=== PATIENT | male | born 1955 | race Caucasian/White ===

== ENCOUNTER 2016-10-30 18:43 | Inpatient (IN) | payer OTHER ==
[~2016-10-30] VITALS: Ht 167.6 cm; Wt 82.7 kg
--- NOTE | ~2016-10-30 | EKG ---
[place] [address] [facility] [place] [address] ELECTROCARDIOGRAM REPORT Name: MALIKA BENZ Room #: 202-P ADM IN M.R.#: [id number] Admission: 10/30/16 Attend Phys: Aneta Rojo Discharge: Date of : 59 Report #: [id number] THIS REPORT FOR: //name// [facility] ED Test Date: 2016-10-30 Test Time: 19:13:19 Pat Name: MALIKA BENZ Department: Room: 202 Gender: M [employer]: NERIS : 1955 Requested By: Jorge Simpson Order Number: [id number] MD: Bryce Winter Measurements Intervals [place] Rate: 108 P: 111 [place]: 182 QRS: 87 QRSD: 90 T: 5 QT: 320 QTc: 429 Interpretive Statements Sinus tachycardia Multiple premature complexes, vent & supraven Compared to ECG 12/01/2015 15:38:16 Supraventricular complexes are now present Electronically Signed On 11-01-2016 7:39:01 CDT by Bryce Winter [email or web address] <ELECTRONICALLY SIGNED> By: Bryce Winter MD, [facility] 11/01/16 07 12 12 Bryce Winter MD, [facility] /EPI
--- NOTE | ~2016-10-30 | EKG ---
[place] [address] [facility] [place] [address] ELECTROCARDIOGRAM REPORT Name: MALIKA BENZ Room #: 202-P ADM IN M.R.#: [id number] Admission: 10/30/16 Attend Phys: Aneta Rojo Discharge: Date of : 59 Report #: [id number] THIS REPORT FOR: //name// [facility] ED Test Date: 2016-10-30 Test Time: 20:02:59 Pat Name: MALIKA BENZ Department: Room: 202 Gender: M [employer] Fort[employer]: NERIS : 1955 Requested By: Jorge Simpson Order Number: [id number] MD: Bryce Winter Measurements Intervals [place] Rate: 94 P: 87 MN: 148 QRS: 91 QRSD: 89 T: -69 QT: 346 QTc: 433 Interpretive Statements Sinus rhythm Atrial premature complexes Borderline right axis deviation Nonspecific T abnormalities, inferior leads Compared to ECG 12/01/2015 15:38:16 Ventricular premature complex(es) no longer present Electronically Signed On 11-01-2016 7:39:28 CDT by Bryce Winter [email or web address] <ELECTRONICALLY SIGNED> By: Bryce Winter MD, [facility] 11/01/16 0739 01 01 Bryce Winter MD, [facility] /EPI
--- NOTE | ~2016-10-30 | 2DMMODE ---
[facility] [address] [place] [address] 2 D/M-MODE ECHOCARDIOGRAM Name: MALIKA BENZ Room #: 202-P ADM IN M.R.#: [id number] Admission: 10/30/16 Attend Phys: Aneta Lopez Discharge: Date of : 59 Date of Service: 10/31/16 1613 Report #: [id number] THIS REPORT FOR: //name// APPROVED REPORT EXAM: Comprehensive 2D, Doppler, and color-flow Echocardiogram Patient Location: Bedside Blood Pressure: 106/75 mmHg HR: 75 bpm Other Information Study Quality: Adequate Indications COPD Dyspnea Chest Pain 2D Dimensions RVDd: 41.32 mm LVEF(%): 50.66 (>50%) IVSd: 9.53 (7-11mm) LVOT Diam: 24.51 (18-24mm) LVDd: 44.32 mm PWd: 10.03 (7-11mm) Ascending Aorta: 30.30 mm LVDs: 32.96 (25-40mm) IVC: 23.00 mm Aortic Root: 30.00 mm Quiñones's LVEF: 50.66 % Volumes Left Atrial Volume (Systole) Single Plane 4CH: 20.52 mL Single Plane 2CH: 31.10 mL LA ESV Index: 15.00 mL/m2 Aortic Valve AoV Peak Ed.: 1.39 m/s AO Peak Gr.: 7.75 mmHg LV Max P.85 mmHg LV Max: 1.10 m/s Mitral Valve MV PHT: 73.57 ms MV E Max Ed.: 0.47 m/s E/A Ratio: 0.6 MV A Ed.: 0.75 m/s MV Decel. Time: 253.68 ms [facility] [place] [address] 2 D/M-MODE ECHOCARDIOGRAM Name: MALIKA BENZ Room #: 202-P [facility] IN M.R.#: [id number] Admission: 10/30/16 Attend Phys: Aneta Lopez Discharge: Date of : 59 Date of Service: 10/31/16 1613 Report #: [id number] Pulmonary Valve PV Peak Ed.: 1.26 m/s PV Peak Gr.: 6.32 mmHg Tricuspid Valve TR Peak Ed.: 3.38 m/s RAP Estimate: 10.00 mmHg TR Peak Gr.: 45.59 mmHg Left Ventricle The left ventricle is normal size. There is normal LV segmental wall motion. There is normal left ventricular wall thickness. Left ventricular systolic function is normal. The left ventricular ejection fraction is within the normal range. LVEF is 50-55%. Grade I - abnormal relaxation pattern. Right Ventricle Right ventricle is borderline dilated. The right ventricular systolic function is normal. Atria The left atrium size is normal. Right atrium is borderline dilated. Aortic Valve The aortic valve is mildly sclerotic without stenosis or insufficiency. No aortic regurgitation is present. There is no aortic valvular stenosis. Mitral Valve The mitral valve is normal in structure. There is no mitral valve regurgitation noted. Tricuspid Valve The tricuspid valve is normal in structure. There is mild tricuspid regurgitation. The right atrial pressure is estimated at 10 mmHg. There is moderate pulmonary hypertension. The estimated PAP is 55 mmHg. Pulmonic Valve The pulmonary valve is normal in structure. Trace pulmonic regurgitation. Great Vessels The aortic root is normal in size. IVC is dilated and collapses >50% with inspiration. Pericardium [facility] [address] [place] [address] 2 D/M-MODE ECHOCARDIOGRAM Name: MALIKA BENZ Room #: 202-P ADM IN M.R.#: [id number] Admission: 10/30/16 Attend Phys: Aneta Lopez Discharge: Date of : 59 Date of Service: 10/31/16 1613 Report #: [id number] There is no pericardial effusion. <Conclusion> Left ventricular systolic function is normal. The left ventricular ejection fraction is within the normal range. There is normal LV segmental wall motion. LVEF 50-55%. Grade I - abnormal relaxation pattern. The aortic valve is mildly sclerotic without stenosis or insufficiency. The mitral valve is normal in structure. No mitral insufficiency. There is mild tricuspid regurgitation. The right atrial pressure is estimated at 10 mmHg. There is moderate pulmonary hypertension. The estimated PAP is 55 mmHg. There is no pericardial effusion. <ELECTRONICALLY SIGNED> By: Bryce Winter MD, FACC 10/31/161612 12 12 Bryce Winter MD, FACC /INF
--- NOTE | ~2016-10-30 | HC ---
[facility] [place] [address] [place] [address] CONSULTATION Name: MALIKA BENZ Room #: 202-P ADM IN M.R.#: [id number] Admission: 10/30/16 Attend Phys: Aneta Rojo Discharge: Date of : 59 Report #: [id number] THIS REPORT FOR: //name// CC: Kena Roche REASON FOR CONSULTATION: Respiratory failure. IMPRESSION: 1. Acute on chronic hypercapnic respiratory failure with hypoxemia. 2. Community acquired pneumonia. 3. Exacerbation of chronic obstructive pulmonary disease. 4. Elevated troponin. 5. Dyslipidemia. 6. Pulmonary hypertension. 7. History of spontaneous left pneumothorax. 8. Hyponatremia. 9. Hyperglycemia. PLAN: 1. BiPAP at bedtime and we will evaluate. He is a candidate for home BiPAP. 2. Further evaluation of troponin, consider Cardiology consultation, has seen Dr. Winter in the past. 3. Antibiotics for left infiltrate. We will add Mucomyst. Wean steroids as able. DVT prophylaxis as well as reflux prophylaxis. HISTORY OF PRESENT ILLNESS: A 60-year-old male complains of increasing shortness of breath the last week. Cough, wheeze, slept throughout the weekend. Took extra prednisone, however, not improved into the ER, found to be hypercapnic, placed on BiPAP. We were called this morning to see. He denies any definite chest pain, nausea or vomiting. PAST MEDICAL HISTORY: MEDICATIONS: Include trazodone, citalopram, buspirone, pravastatin, Mucinex, albuterol, Ventolin, prednisone, Stiolto and Zithromax Sunday, Sunday and Sunday. PAST SURGICAL HISTORY: Include rotator cuff 2003, tonsillectomy in 1966, appendectomy in 1962 and cataract removal. FAMILY HISTORY: Heart and valvular disease. SOCIAL HISTORY: Positive tobacco 40 years, quit 10/2015. Positive ETOH in past. [facility] [address] [place] [address] CONSULTATION Name: MALIKA BENZ Room #: 202-P [facility] IN M.R.#: [id number] Admission: 10/30/16 Attend Phys: Aneta Rojo Discharge: Date of : 59 Report #: [id number] ALLERGIES: No known. REVIEW OF SYSTEMS: Positive for shortness of breath, wheeze, cough, lethargy. No GERD. No definite chest pain or palpitation. Positive depression, fatigue, wears home oxygen. PHYSICAL EXAMINATION: VITAL SIGNS: Temperature 97.4, pulse 68, respirations 20, BP 106/75. EYES: Negative icterus. NECK: Trachea midline. LUNGS: Wheeze and rhonchi bilateral. HEART: Regular. ABDOMEN: Bowel sounds present. EXTREMITIES: Showed no cyanosis or calf tenderness. LABORATORY DATA: CMP showed BUN 17, creatinine 0.9, sodium 132, glucose 185. Troponin 0.76. White count 7.9, hemoglobin 17.7, platelets 168. Initial ABG 7.278, pCO2 71, pO2 [address] PE protocol showed emphysema, left lower lobe infiltrate. ProBNP 2199. We will follow closely with you. We will check was done as outpatient. <ELECTRONICALLY SIGNED> By: Valeria Gil MD 11/03/16 0702 1315 1425 Valeria Gil MD /nt
[~2016-10-30 18:43] MED LIST: ACAMPROSATE CA333 MG PO; ACETAMINOPHEN325 M1; ADVAIR 500-501 EACH INH; ADVAIR HFA 230M12 GM INH; ADVAIRDISKUS; ALBUTEROL2.5 MG/0.1 INH; ALEVE220 MG; ATIVAN0.5 MG; ATIVAN0.5 MG OR; ATIVAN0.5 MG PO; ATIVAN1 MG PO; AVELOX 400 MG400 MG PO; AZITHROMYCIN 2250 MG PO; B-100 COMPLEX1 EAC1 PO; BUSPIRONE HCL10 MG PO; CAMPRAL 333 MG333 M1 PO; CELEXA 20 MG TA20 M1; CELEXA 20 MG TA20 M1 OR; CELEXA 20 MG TA20 M1 PO; CENTRUM TABLET1 TAB OR; CHANTIX1 MG PO; CLONAZEPAM PO; COMBIVENT IH; COUMADIN PO; CREON DR 12,001 EACH; CREON DR 12,001 EACH PO; CREON PO; DESYREL50 MG; DESYREL50 MG OR; DESYREL50 MG PO; DUONEB 2.5-0.5 M3 ML INH; FISH OIL; FISH OIL 1,0001 EAC5 PO; FISHOIL PO; HYDROCODON-ACE1 EAC7 PO; LEVAQUIN 500 M500 M1 PO; LOVENOX SC; MEDROL2 MG; MUCINEX600 MG PO; MULTIVITAMIN; MULTIVITAMINS PO; NEURONTIN 300300 M1; NEURONTIN 300300 M1 PO; NEURONTIN 300M300 M2 OR; ONE DAILY COMP1 EAC1 PO; PEPCID AC20 M1 PO; PRAVACHOL20 MG PO; PREDNISONE 10 M10 MG PO; PREDNISONE 20 M20 M1 PO; PREDNISONE 5 MG5 M1 PO; PREDNISONE 5 MG5 MG; PROVENTIL HFA6.7 G1 INH; ROBITUSSIN DM118 ML PO; SPIRIVA; SPIRIVA IH; SPIRIVA INH; SPRIVA; STIOLTO RESPIMAT4 GM IH; TRAZODONE PO; VENTOLIN HFA INH8 GM; VIOKASE 8 TABL468 MG OR; VITAMIN B; VITAMIN C; VITAMIN C 250250 MG PO
[2016-10-30 18:46] VITALS: BP 118/85
[2016-10-30 19:25] LABS: HEMATOCRIT 51.5 % (42.0-52.0); HEMOGLOBIN 17.7 gm/dL (14.0-18.0); MCH 31.7 pg (26.0-34.0); MCHC 34.4 g/dL (28.0-37.0); MCV 92.1 fL (80.0-100.0); PLATELET COUNT 168 thou/uL (150-400); RBC 5.59 mil/uL (4.50-6.00); RDW 12.8 % (10.5-14.5); WBC 7.9 thou/uL (4.0-11.0)
[2016-10-30 19:26] LABS: MANUAL DIFF YES
[2016-10-30 19:37] LABS: CREATININE 0.9 mg/dL (0.6-1.3); POTASSIUM 4.4 mmol/L (3.5-5.1)
[2016-10-30 19:46] LABS: ALBUMIN 3.6 g/dL (3.4-5.0); TOTAL BILIRUBIN 0.9 mg/dL (<0.1-1.0)
[2016-10-30 19:48] LABS: TROPONIN-I 0.76 ng/mL (<0.04-0.07)
[2016-10-30 19:56] LABS: ABSOLUTE NEUTROPHILS 6.8 thou/uL (1.4-8.2); TOTAL CELL COUNT 100
[2016-10-30 20:09] LABS: ABG SAMPLE TYPE ARTERIAL; BE(vivo) 2.3 mmol/L (-2 to +3); HCO3 32.3 mmol/L (22.0-26.0); LACTATE 1.78 mmol/L (0.5-2.0); O2(CT) 25.1 mL/dL (15.0-23.0); O2Hb 92.3 % (92.0-98.0); sO2 90.6 % (92.0-98.0); tCO2 34.4 mmol/L (24.0-30.0)
[2016-10-30 20:10] LABS: PCO2 70.6 mmHg (35.0-45.0); STICK SITE R.RADIAL; pH 7.278 (7.360-7.450)
[2016-10-30 22:02] VITALS: BP 104/81
[2016-10-30 22:16] VITALS: BP 100/72
[2016-10-30] MEDS ORDERED: TRAZODONE HCL50 MG PO (22:27)
[2016-10-30] MEDS ORDERED: FOSAMAX 70 MG T70 MG PO (22:31)
[2016-10-31 03:22] VITALS: BP 98/72
[2016-10-31 06:22] LABS: ABG SAMPLE TYPE ARTERIAL; BE(vivo) 1.5 mmol/L (-2 to +3); HCO3 29.6 mmol/L (22.0-26.0); LACTATE 1.72 mmol/L (0.5-2.0); O2(CT) 26.3 mL/dL (15.0-23.0); O2Hb 96.5 % (92.0-98.0); PCO2 58.2 mmHg (35.0-45.0); PO2 95.8 mmHg (80.0-100.0); sO2 96.7 % (92.0-98.0); tCO2 31.4 mmol/L (24.0-30.0)
[2016-10-31 06:23] LABS: Pressure Support 6 cm H20; STICK SITE R.RADIAL; pH 7.324 (7.360-7.450)
[2016-10-31 07:10] VITALS: BP 106/75
[2016-10-31 12:00] VITALS: BP 107/76
[2016-10-31 16:30] VITALS: BP 107/75
[2016-10-31 19:24] VITALS: BP 111/74
[2016-10-31 22:06] LABS: GLYCOHEMOGLOBIN (HGB A1C) 5.4 % (4.8-5.6)
[2016-11-01 04:46] VITALS: BP 94/65
[2016-11-01 08:00] VITALS: BP 97/73
[2016-11-01 11:05] VITALS: BP 97/61
[2016-11-01 11:13] VITALS: BP 97/61
[2016-11-01 17:05] VITALS: BP 112/78
[2016-11-01 19:40] VITALS: BP 105/77
[2016-11-02 04:11] VITALS: BP 104/72
[2016-11-02 07:10] VITALS: BP 116/81
[2016-11-02 11:10] VITALS: BP 111/73
[2016-11-02 15:10] VITALS: BP 137/81
[2016-11-02 19:36] VITALS: BP 116/81
[2016-11-03 04:21] VITALS: BP 135/87
[2016-11-03 07:18] VITALS: BP 119/79
[2016-11-03] MEDS ORDERED: CEFUROXIME250 MG PO (09:26)
[2016-11-03] MEDS ORDERED: NICOTINE TRANSD14 M1 TRANSDERM (09:26)
[2016-11-03] MEDS ORDERED: PREDNISONE 20 M20 M1 PO (09:28)
[2016-11-03 10:12] VITALS: BP 119/79
[2016-11-03 11:10] VITALS: BP 142/87
[2016-11-04 04:06] LABS: INFLUENZA B Negative (Negative); METAPNEUMOVIRUS Negative (Negative)
== END 2016-11-03 12:30 | disposition home or self-care (01) | DRG 871 ==
LOC: ER 18:43 → 2N 21:33 → EROBS 21:33 → 2N 22:03
PROVIDERS: Emergency Medicine; Family Medicine; Internal Medicine Pulmonary Disease; Nurse Practitioner
PROC: 5A09457 Assistance with Respiratory Ventilation, 24-96 Consecutive Hours, Continuous Positive Airway Pressure (ICD-10-PCS; principal; 2016-10-31)
DX: A41.9 Sepsis, unspecified organism (principal); J18.9 Pneumonia, unspecified organism; J96.21 Acute and chronic respiratory failure with hypoxia; J96.22 Acute and chronic respiratory failure with hypercapnia; J44.1 Chronic obstructive pulmonary disease with (acute) exacerbation; J44.0 Chronic obstructive pulmonary disease with (acute) lower respiratory infection; E87.1 Hypo-osmolality and hyponatremia; F32.9 Major depressive disorder, single episode, unspecified; E78.5 Hyperlipidemia, unspecified; I27.2 Other secondary pulmonary hypertension; E11.65 Type 2 diabetes mellitus with hyperglycemia; Z87.891 Personal history of nicotine dependence; Z90.49 Acquired absence of other specified parts of digestive tract; Z82.49 Family history of ischemic heart disease and other diseases of the circulatory system
CPT/HCPCS: 10081

== ENCOUNTER 2016-11-04 07:30 | Emergency (ER) | payer OTHER ==
[~2016-11-04] VITALS: Ht 167.6 cm; Wt 84.4 kg
--- NOTE | ~2016-11-04 | EKG ---
[place] [address] [employer] [address] ELECTROCARDIOGRAM REPORT Name: MALIKA BENZ 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
[~2016-11-04 07:30] MED LIST changes: +CEFUROXIME250 MG PO; +FOSAMAX 70 MG T70 MG PO; +NICOTINE TRANSD14 M1 TRANSDERM; +TRAZODONE HCL50 MG PO
[2016-11-04 07:57] LABS: ABSOLUTE NEUTROPHILS 6.9 thou/uL (1.4-8.2); BASOPHILS 0.5 % (0.0-2.0); EOSINOPHILS 0.8 % (0.0-3.0); HEMATOCRIT 48.7 % (42.0-52.0); HEMOGLOBIN 16.2 gm/dL (14.0-18.0); LYMPHOCYTES 17.8 % (24.0-44.0); MCH 31.3 pg (26.0-34.0); MCHC 33.2 g/dL (28.0-37.0); MCV 94.4 fL (80.0-100.0); PLATELET COUNT 200 thou/uL (150-400); POLYS 72.9 % (36.0-66.0); RBC 5.16 mil/uL (4.50-6.00); RDW 12.6 % (10.5-14.5); WBC 9.4 thou/uL (4.0-11.0)
[2016-11-04 07:58] LABS: CALCIUM 8.6 mg/dL (8.5-10.1); CREATININE 0.8 mg/dL (0.6-1.3); MANUAL DIFF NO; POTASSIUM 3.8 mmol/L (3.5-5.1)
[2016-11-04 08:11] LABS: TROPONIN-I 0.07 ng/mL (<0.04-0.07)
[2016-11-04 10:29] LABS: ABG SAMPLE TYPE ARTERIAL; BE(vivo) 9.3 mmol/L (-2 to +3); HCO3 37.7 mmol/L (22.0-26.0); LACTATE 0.93 mmol/L (0.5-2.0); O2(CT) 22.4 mL/dL (15.0-23.0); O2Hb 94.4 % (92.0-98.0); PCO2 65.6 mmHg (35.0-45.0); pH 7.377 (7.360-7.450); sO2 95.4 % (92.0-98.0); tCO2 39.7 mmol/L (24.0-30.0)
[2016-11-04 10:30] LABS: STICK SITE R.RADIAL
== END 2016-11-04 14:12 | disposition home or self-care (01) ==
LOC: ER 07:30
PROVIDERS: Emergency Medicine
DX: R09.02 Hypoxemia (principal); J44.1 Chronic obstructive pulmonary disease with (acute) exacerbation; Z98.890 Other specified postprocedural states; F32.9 Major depressive disorder, single episode, unspecified; E11.9 Type 2 diabetes mellitus without complications; F17.210 Nicotine dependence, cigarettes, uncomplicated

== ENCOUNTER → 2016-11-13 | Outpatient (CLI) | payer OTHER | LOC: RAD 13:11 | DX: J18.9 Pneumonia, unspecified organism (principal); J44.9 Chronic obstructive pulmonary disease, unspecified; J90 Pleural effusion, not elsewhere classified ==

== ENCOUNTER 2017-07-25 13:35 | Inpatient (IN) | payer OTHER ==
[~2017-07-25] VITALS: Ht 167.6 cm; Wt 92.1 kg
--- NOTE | ~2017-07-25 | HC ---
[facility] [address] [address] CONSULTATION Name: MALIKA BENZ Room #: 360-P ADM IN M.R.#: [id number] Admission: 07/25/17 Attend Phys: Chuck Griffin MD Discharge: Date of : 59 Report #: [id number] THIS REPORT FOR: //name// CC: Chuck Griffin [facility] physician/PCP Juan Roche DATE OF SERVICE: 07/25/2017 PULMONARY CONSULTATION REFERRING PROVIDER: Kena Dalton MD REASON FOR CONSULTATION: Pneumonia and pulmonary embolism. HISTORY OF PRESENT ILLNESS: The patient is a pleasant 61-year-old male with the past medical history significant for very severe COPD. He has chronic hypoxemia and prior history of pulmonary embolism, presented to our office for a routine followup late this morning. Noted some increasing cough with thick yellow sputum production. Did not improve dramatically after last course of antimicrobial therapy 1 month ago. Denies any fevers, chills or sweats, but continues to have thick secretions causing some dyspnea, perhaps some mild left-sided chest pain. There is a prior history of pulmonary embolism. Has noted some mild lower extremity edema, may have been progressively worsening. His dyspnea has been getting more severe, where he cannot even tolerate ambulating short distances and has not been exercising regularly on his treadmill. He has been using his flutter valve and aerosol treatments for airway clearance. ALLERGIES: None known. OUTPATIENT MEDICATIONS: Include ProAir p.r.n., albuterol nebulized treatments p.r.n., azithromycin 500 mg t.i.w., BuSpar 7.5 mg daily, Celexa 20 mg daily, guaifenesin 600 mg twice daily, Pravachol 40 mg daily, prednisone 20 mg daily, Stiolto inhaler and trazodone 50 mg daily. PAST MEDICAL HISTORY: 1. Very severe COPD. FEV1 is 0.72 liters or 25% of predicted. 2. Chronic hypoxemia secondary to above. 3. Depression. 4. Prior history of pulmonary embolism. 5. History of pancreatitis. 6. Hyperlipidemia. 7. Prior history of pneumothorax, 2016. 8. Pulmonary hypertension. [facility] [address] [place] [address] CONSULTATION Name: MALIKA BENZ Room #: 360-P [facility] IN M.R.#: [id number] Admission: 07/25/17 Attend Phys: Chuck Griffin MD Discharge: Date of : 59 Report #: [id number] PAST SURGICAL HISTORY: Includes cataract extraction, bilateral rotator cuff repairs, appendectomy and tonsillectomy. SOCIAL HISTORY: Ex-smoker, quitting in 10/2015. Currently uses electronic cigarettes. No significant alcohol consumption. 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 FAMILY HISTORY: Negative for any significant pulmonary disease. REVIEW OF SYSTEMS: CONSTITUTIONAL: No fevers, chills or sweats. ENT: Denies any upper respiratory congestion, rhinorrhea or dysphagia. CARDIOVASCULAR: No chest pain or palpitations. GASTROINTESTINAL: No nausea, vomiting, diarrhea, constipation or abdominal pain. GENITOURINARY: No dysuria. No frequency. INTEGUMENT: Denies any rash. MUSCULOSKELETAL: Some increased lower extremity edema. PHYSICAL EXAMINATION: VITAL SIGNS: Afebrile, pulse 70, respiratory rate 18, blood pressure 107/75 and oxygen saturation 98% on 2 liters. GENERAL: This is a somewhat cushingoid-appearing, middle-aged male, in no distress. HEENT: Clear oropharynx. No thrush. Mallampati 2 airway. NECK: Supple. No lymphadenopathy. LUNGS: Diminished with the very prolonged expiratory phase. Diffuse wheezes. CARDIOVASCULAR: Heart is regular. No murmurs. ABDOMEN: Soft and nontender. No masses. EXTREMITIES: With 1+ lower extremity edema. LABORATORY DATA: Labs are pending. CT scan of the chest PE protocol revealed what appears to be a recurrent superior segment left lower lobe infiltrative process. Small left lower lung field pulmonary embolism as well as diffuse emphysema and old fibrotic changes in the right middle lobe and some calcified nodules in the right lung. IMPRESSION: 1. Community-acquired pneumonia with failing outpatient therapy. 2. Pulmonary embolism, recurrent. 3. Chronic obstructive pulmonary disease with acute exacerbation. 4. [id number] hypoxemic respiratory failure. SUGGESTIONS: 1. Anticoagulation with enoxaparin. 2. Antibiotics per Infectious Diseases Service. [address] [address] CONSULTATION Name: MALIKA BENZ Room #: 360-P [facility] IN M.R.#: [id number] Admission: 07/25/17 Attend Phys: Chuck Grfifin MD Discharge: Date of : 59 Report #: [id number] 3. Systemic steroid taper. 4. Bronchodilators. 5. Mucomyst. 6. Consider adding IPV treatments for airway clearance. 7. May require bronchoscopy to clear left lower lung mucus plug. 8. Await sputum and blood cultures. 9. Respiratory viral panel. 10. Likely will need lifelong anticoagulation. 11. Additional recommendations to follow. Thank you for requesting our suggestions. By: [id number] Juan Roche MD /nt
--- NOTE | ~2017-07-25 | HC ---
[facility] [place] [place] [address] CONSULTATION Name: MALIKA BENZ Room #: 360-P [facility] IN M.R.#: [id number] Admission: 07/25/17 Attend Phys: Chuck Griffin MD Discharge: Date of : 59 Report #: [id number] THIS REPORT FOR: //name// CC: Chuck Griffin [facility] physician/PCP Juan Roche TYPE OF REPORT: Infectious disease consultation. REASON FOR CONSULTATION: I was asked to evaluate concerning community-acquired pneumonia and COPD. HISTORY OF PRESENT ILLNESS: The patient was a 61-year old, underlying history of COPD, chronic bronchitis, pulmonary hypertension, hospitalized last in October of this year with pneumonia and exacerbation of his COPD. He has been on 2-4 liters of oxygen per nasal cannula as a baseline. Prednisone at 15 mg a day. Over the last month, he has had increased cough, shortness of breath and congestion. He was placed on oral antibiotics about 3 weeks ago and increased his prednisone up to 30 mg a day. He then tapered down over the last month. He has had progressive shortness of breath. Intermittent sputum production of relatively thick light-colored sputum without hemoptysis. He was unable to maintain his saturations at home and he presents to the Emergency Room for further evaluation. No documented fever, chills or sweats. He has had increased weight gain and further inactivity due to his dyspnea. Mild lower extremity edema. No headaches, sinus disease, nausea, vomiting, diarrhea, chest pain, dysuria or frequency. No HIV risk factors. 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 Lives with his with no recent exposures to ill persons. No travel outside the [place]. Past smoker. IMMUNIZATIONS: Up-to-date for pneumonia and influenza. No history of tuberculosis or fungal infection. ALLERGIES: None known. MEDICATIONS: As noted on his MAR, noting that he is on 3 days a week azithromycin. PAST MEDICAL HISTORY: Rotator cuff repair, right tonsillectomy, appendectomy, cataract surgery, hyperlipidemia, pulmonary hypertension, left pneumothorax and hyperglycemia. FAMILY HISTORY: Valvular heart disease. SOCIAL HISTORY: As noted above with no significant alcohol or other details of note. REVIEW OF SYSTEMS: As noted above with no neurologic, skin, lymph or joint [facility] [address] [place] [address] CONSULTATION Name: MALIKA BENZ Room #: 360-P [facility] IN M.R.#: [id number] Admission: 07/25/17 Attend Phys: Chuck Griffin MD Discharge: Date of : 59 Report #: [id number]. PHYSICAL EXAMINATION: VITAL SIGNS: Afebrile and hemodynamically stable. GENERAL: He was alert and cooperative and pleasant, in no acute distress. SKIN: Unremarkable. He was cushingoid. HEENT: Unremarkable. NECK: Supple. No adenopathy. LUNGS: Decreased breath sounds bilaterally with no consolidation. HEART: Regular. ABDOMEN: Obese, soft and nontender. No hepatosplenomegaly or mass. EXTREMITIES: Trace peripheral edema. LABORATORY STUDIES: CT scan of the chest showed small left pulmonary embolus. Mild left lower lobe atelectasis, infiltrates and scarring. No consolidating infiltrates. Sodium 143, potassium 3.9, bicarbonate 33 and creatinine 0.8. Liver function test normal. Albumin at 3.8. Hemoglobin 16.6; white count 10.0 and platelet count 213,000. ABG on 2 liters pO2 of 58, pCO2 of 50, pH of 7.4 and lactate 1.4. IMPRESSION AND PLAN: A 61-year old with several issues culminating into his current presentation with profound respiratory distress and inability to function at home. He has community-acquired pneumonia. Has pulmonary embolus. Has exacerbation of his chronic obstructive pulmonary disease and pulmonary hypertension, most likely. We would recommend evaluating sputum, blood and urine for culture and urine antigens. We will continue IV antibiotic therapy with Zosyn and screen for methicillin-resistant Staphylococcus aureus. I feel at this time he is at low risk for this and will not begin in a methicillin-resistant Staphylococcus aureus coverage at this time. We will continue with Zosyn and his azithromycin on a weekly skin and azithromycin. Depending upon his response, may need further evaluation of his cardiac status. We will treat with anticoagulation and corticosteroids. <ELECTRONICALLY SIGNED> By: Gregorio Bond MD 07/26/17 0825 2049 0304 Gregorio Bond MD /nt
--- NOTE | ~2017-07-25 | 2DMMODE ---
[facility] [address] [place] [address] 2 D/M-MODE ECHOCARDIOGRAM Name: MALIKA BENZ Room #: 360-P [facility] IN M.R.#: [id number] Admission: 07/25/17 Attend Phys: Chuck Griffin MD Discharge: Date of : 59 Date of Service: 07/26/17 0911 Report #: [id number] THIS REPORT FOR: //name// APPROVED REPORT Study performed: 07/26/2017 09:19:15 EXAM: Comprehensive 2D, Doppler, and color-flow Echocardiogram Patient Location: Echo lab Room #: 360 Status: routine BSA: 1.99 HR: 76 bpm BP: 100/67 mmHg Rhythm: NSR Other Information Study Quality: Good Indications Pulmonary Embolism Pulmonary Hypertension Hx: COPD, PHTN. 2D Dimensions RVDd: 44.90 mm LVEF(%): 73.80 (>50%) IVSd: 11.16 (7-11mm) LVOT Diam: 23.45 (18-24mm) LVDd: 53.53 mm PWd: 10.69 (7-11mm) Ascending Ao: 38.16 (22-36mm) LVDs: 30.44 (25-40mm) Aortic Root: 33.11 mm Quiñones's LVEF: 73.80 % Volumes Left Atrial Volume (Systole) Single Plane 4CH: 40.64 mL Single Plane 2CH: 54.34 mL Aortic Valve AoV Peak Ed.: 1.96 m/s AO Peak Gr.: 15.42 mmHg LVOT Max P.11 mmHg LVOT Max V: 1.67 m/s RADHA Vmax: 3.66 cm2 Mitral Valve E/A Ratio: 0.8 [facility] [address] [place] [address] 2 D/M-MODE ECHOCARDIOGRAM Name: MALIKA BENZ NICCI Room #: 360-[facility] IN M.R.#: [id number] Admission: 07/25/17 Attend Phys: Chuck Griffin MD Discharge: Date of : 59 Date of Service: 07/26/17 0911 Report #: [id number] MV Decel. Time: 269.43 ms MV E Max Ed.: 0.72 m/s MV A Ed.: 0.88 m/s MV PHT: 78.13 ms IVRT: 87.66 ms Pulmonary Valve PV Peak Ed.: 1.42 m/s PV Peak Gr.: 8.09 mmHg Tricuspid Valve TR Peak Ed.: 3.45 m/s RAP Estimate: 5.00 mmHg TR Peak Gr.: 47.51 mmHg PA Pressure: 53.00 mmHg Left Ventricle The left ventricle is normal size. There is normal LV segmental wall motion. There is normal left ventricular wall thickness. Left ventricular systolic function is normal. LVEF is 55-60%. Mild diastolic dysfunction is present (impaired relaxation pattern). Right Ventricle Right ventricle is mildly dilated. The right ventricular systolic function is normal. Atria The left atrium size is normal. Right atrium is mildly dilated. Aortic Valve The aortic valve is sclerotic, trileaflet. No aortic regurgitation. There is no aortic valvular stenosis. Mitral Valve The mitral valve is normal in structure. There is no mitral valve regurgitation noted. Tricuspid Valve The tricuspid valve is normal in structure. Mild to moderate tricuspid regurgitation. Estimated PAP is 50-55mmHg. Pulmonic Valve The pulmonary valve is normal in structure. Trace pulmonic regurgitation. Great Vessels [facility] [address] [place] [address] 2 D/M-MODE ECHOCARDIOGRAM Name: MALIKA BENZ Room #: 360-P [facility] IN M.R.#: [id number] Admission: 07/25/17 Attend Phys: Chuck Griffin MD Discharge: Date of : 59 Date of Service: 07/26/17 0911 Report #: [id number] The aortic root is normal in size. Ascending aorta measures at the upper limits of normal. IVC is normal in size and collapses >50% with inspiration. Pericardium There is no pericardial effusion. <Conclusion> Left ventricular systolic function is normal. There is normal LV segmental wall motion. LVEF is 55-60%. Grade I diastolic dysfunction Right ventricle and atrium are mildly dilated. The aortic valve is sclerotic, trileaflet. No aortic regurgitation or stensosis. The mitral valve is normal in structure. No mitral valve regurgitation noted. Pulmonary artery pressure of 50-55mmHg There is no pericardial effusion. <ELECTRONICALLY SIGNED> By: Bryce Winter MD, [facility] 07/26/17910 0 0 Bryce Winter MD, FAC /INF
[2017-07-25 17:48] VITALS: BP 107/75
[2017-07-25 19:09] VITALS: BP 103/68
[2017-07-25 19:22] LABS: ABG SAMPLE TYPE ARTERIAL; BE(vivo) 5.3 mmol/L (-2 to +3); HCO3 31.3 mmol/L (22.0-26.0); O2(CT) 21.2 mL/dL (15.0-23.0); O2Hb 89.8 % (92.0-98.0); PCO2 50.3 mmHg (35.0-45.0); PO2 58.8 mmHg (80.0-100.0); STICK SITE L.BRACHIAL; pH 7.412 (7.360-7.450); sO2 90.5 % (92.0-98.0); tCO2 32.9 mmol/L (24.0-30.0)
[2017-07-25 19:45] LABS: HEMATOCRIT 48.8 % (42.0-52.0); HEMOGLOBIN 16.6 gm/dL (14.0-18.0); MCH 32.1 pg (26.0-34.0); MCV 94.6 fL (80.0-100.0); RBC 5.15 mil/uL (4.50-6.00)
[2017-07-25 20:21] LABS: ALBUMIN 3.8 g/dL (3.4-5.0); CALCIUM 9.3 mg/dL (8.5-10.1); CREATININE 0.8 mg/dL (0.7-1.3); POTASSIUM 3.9 mmol/L (3.5-5.1); TOTAL BILIRUBIN 0.7 mg/dL (<0.1-1.0); TOTAL PROTEIN 6.1 g/dL (6.4-8.2)
[2017-07-26] VITALS (7 sets, daily range): BP systolic 84–106; BP diastolic 47–71
[2017-07-26] MEDS ORDERED: ALBUTEROL2.5 MG/31 INH (13:36)
[2017-07-26] MEDS ORDERED: STIOLTO RESPIMAT4 GM INH (13:38)
[2017-07-27 03:30] VITALS: BP 107/70
[2017-07-27 07:30] VITALS: BP 115/74
[2017-07-27 11:27] VITALS: BP 103/63
[2017-07-27] MEDS ORDERED: CEFDINIR300 MG PO (17:08)
[2017-07-27] MEDS ORDERED: AZITHROMYCIN 2250 MG PO (17:08)
[2017-07-27] MEDS ORDERED: MEDROLDOSEPACK PO (17:08)
[2017-07-27 17:19] VITALS: BP 103/63
[2017-07-27 23:09] LABS: INFLUENZA B Negative (Negative); METAPNEUMOVIRUS Negative (Negative)
== END 2017-07-27 17:55 | disposition home or self-care (01) | DRG 175 ==
LOC: CAT 13:35 → 3W 16:57 → ENTRNSPT 07-27 17:35 → 3W 07-27 17:55
PROVIDERS: Hospitalist; Internal Medicine Pulmonary Disease
DX: I26.99 Other pulmonary embolism without acute cor pulmonale (principal); J18.9 Pneumonia, unspecified organism; J96.21 Acute and chronic respiratory failure with hypoxia; J44.1 Chronic obstructive pulmonary disease with (acute) exacerbation; J44.0 Chronic obstructive pulmonary disease with (acute) lower respiratory infection; D35.00 Benign neoplasm of unspecified adrenal gland; E78.5 Hyperlipidemia, unspecified; I27.20 Pulmonary hypertension, unspecified; F32.9 Major depressive disorder, single episode, unspecified; Z90.49 Acquired absence of other specified parts of digestive tract; Z98.49 Cataract extraction status, unspecified eye; Z82.49 Family history of ischemic heart disease and other diseases of the circulatory system; Z98.52 Vasectomy status; Z87.891 Personal history of nicotine dependence
CPT/HCPCS: 10779

== ENCOUNTER 2017-08-06 03:06 | Inpatient (IN) | payer OTHER ==
[~2017-08-06] VITALS: Ht 177.8 cm; Wt 87.6 kg
--- NOTE | ~2017-08-06 | EKG ---
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1955 Requested By: Sanchez Ogden Order Number: [id number] MD: Omid Restrepo Measurements Intervals [place] Rate: 109 P: 86 [place]: 134 QRS: 88 QRSD: 87 T: 36 QT: 297 QTc: 400 Interpretive Statements Sinus tachycardia Compared to ECG 11/04/2016 07:51:59 Sinus rhythm no longer present Atrial premature complex(es) no longer present ST (T wave) deviation no longer present Electronically Signed On 08-06-2017 19:09:12 PAINT TRIMMER PIPE BOWLS by Omid Restrepo [email or web address] <ELECTRONICALLY SIGNED> By: Omid Restrepo MD 08/06/17 1909 Omid Restrepo MD /EPI
--- NOTE | ~2017-08-06 | HC ---
[facility] [place] [address] CONSULTATION Name: MALIKA BENZ Room #: 205-P ADM IN M.R.#: [id number] Admission: 08/06/17 Attend Phys: Chuck Griffin MD Discharge: Date of : 59 Report #: [id number] THIS REPORT FOR: //name// CC: Chuck Aquino REFERRAL PHYSICIAN: Chuck Griffin MD REASON FOR REFERRAL: Acute respiratory failure. HISTORY OF PRESENT ILLNESS: The patient is a 61-year-old white male who presents to the emergency room with acute onset respiratory distress. A pulmonary consultation was requested. The patient has known very severe COPD with a baseline FEV1 of 0.72 liters or 25% predicted, he is oxygen dependent, he has a past history of pulmonary embolus. He was just hospitalized on July 25, for pneumonia. He is felt to have failed outpatient therapy. He was discharged around July 27. Since discharge, he states that he was doing fairly well except for the past few days, he began to notice increasing dyspnea on exertion. A grandson had a viral syndrome. Symptoms worsened with cough, productive of purulent sputum. For that reason, he presented to emergency room. Chest x-ray performed in the ER suggests possible right lower lobe infiltrates. Otherwise, rest of the lung macdonald are clear. This morning, he is much improved. Dyspnea is less. Denies any chest pain, nausea, vomiting, diarrhea, or hemoptysis. PAST MEDICAL HISTORY: Notable for very severe COPD, FEV1 0.72 liters or 25%, chronic hypoxic respiratory failure, recurrent pulmonary embolus, pulmonary hypertension, past history of pneumothorax in 2016, hyperlipidemia, past history of pancreatitis, and depression. PAST SURGICAL HISTORY: Include cataract surgery, bilateral rotator cuff surgery, appendectomy, and tonsillectomy. ALLERGIES: None. HOME MEDICATIONS: Reviewed, this include recent course of Omnicef, Zithromax, Medrol Dosepak, Mucinex, Desyrel, buspirone, nebulized albuterol, Stiolto, Xarelto, and Celexa. FAMILY HISTORY: Noncontributory. [facility] [address] [place] [address] CONSULTATION Name: MALIKA BENZ Room #: 205-P [facility] IN M.R.#: [id number] Admission: 08/06/17 Attend Phys: Chuck Griffin MD Discharge: Date of : 59 Report #: [id number] SOCIAL HISTORY: The patient has smoked until 2016. Smoked most of his life. Denies alcohol use. He is retired. He used to work for the [employer]. REVIEW OF SYSTEMS: As mentioned above, otherwise 10-point system review negative. PHYSICAL EXAMINATION: GENERAL: He is awake, alert, and in moderate respiratory distress. VITAL SIGNS: Temperature is 99 degrees Fahrenheit, pulse is 85, respiratory rate is 20, blood pressure 106/74 mmHg, and saturation 94%. HEENT: Normocephalic, atraumatic. NECK: Supple without any lymphadenopathy or thyromegaly. CHEST: Breath sounds are decreased bilaterally, moderate expiratory wheezes. No obvious rales. CARDIOVASCULAR: Normal S1, S2. There are no murmurs or gallops. There is no JVD. There is no carotid bruit. Pulses are 2+/4+ bilaterally. ABDOMEN: Obese, soft, and nontender. No organomegaly or masses felt. GENITOURINARY: Deferred. RECTAL: Deferred. EXTREMITIES: There is no edema, cyanosis or clubbing. LABORATORY DATA: Chest x-ray as mentioned above showing questionable right lower lobe infiltrate, otherwise clear, bullous changes are noted in the left lung field. CT chest also reviewed showing emphysema along with fibrosis involving the right upper lobe and left lower lobe. Small pleural effusion seen. A nonobstructing 3 mm left renal stone is noted. Electrolytes are normal, creatinine 0.9. WBC 13,400, hemoglobin is 17.3. Arterial blood gas revealed pH 7.28, pCO2 of 64, pO2 310 on FiO2 100%. IMPRESSION: 1. Acute on chronic hypercapnic hypoxic respiratory failure in this 61-year-old white male. The etiology is secondary to exacerbation of very severe chronic obstructive pulmonary disease. Questionable early pneumonia involving the right lower lobe. 2. Chronic obstructive pulmonary disease, very severe impairment, oxygen dependent. 3. Recurrent pulmonary embolus, resume anticoagulation. 4. Pulmonary hypertension secondary to severe pulmonary impairment. RECOMMENDATION: Agree with corticosteroids, bronchodilators and broad spectrum antibiotics. Resume anticoagulation. DVT and GI prophylaxis has been addressed. [address] [address] CONSULTATION Name: MALIKA BENZ Room #: 205-P [facility] IN M.R.#: [id number] Admission: 08/06/17 Attend Phys: Chuck Griffin MD Discharge: Date of : 59 Report #: [id number] Thank you for this consultation. <ELECTRONICALLY SIGNED> By: lCay Aquino MD 08/07/17 1216 1409 1713 Clay Aquino MD /nt
[~2017-08-06 03:06] MED LIST changes: +ALBUTEROL2.5 MG/31 INH; +CEFDINIR300 MG PO; +MEDROLDOSEPACK PO; +STIOLTO RESPIMAT4 GM INH
[2017-08-06 03:07] VITALS: BP 142/103
[2017-08-06 03:22] LABS: BE(vivo) 0.4 mmol/L (-2 to +3); HCO3 29.5 mmol/L (22.0-26.0); PCO2 64.2 mmHg (35.0-45.0); PO2 310.3 mmHg (80.0-100.0); sO2 99.6 % (92.0-98.0)
[2017-08-06 03:26] LABS: HEMATOCRIT 51.2 % (42.0-52.0); HEMOGLOBIN 17.3 gm/dL (14.0-18.0); MCH 32.3 pg (26.0-34.0); MCHC 33.8 g/dL (28.0-37.0); MCV 95.8 fL (80.0-100.0); RBC 5.35 mil/uL (4.50-6.00); RDW 13.1 % (10.5-14.5); WBC 13.4 thou/uL (4.0-11.0)
[2017-08-06 03:30] LABS: ANION GAP 3 mmol/L (7-16); BUN 16 mg/dL (7-18); CALCIUM 8.9 mg/dL (8.5-10.1); CHLORIDE 101 mmol/L (98-107); CO2 34 mmol/L (21-32); CREATININE 0.9 mg/dL (0.7-1.3); GLUCOSE 127 mg/dL (74-106); POTASSIUM 4.4 mmol/L (3.5-5.1); SODIUM 138 mmol/L (136-145)
[2017-08-06 03:38] LABS: TROPONIN-I < 0.04 ng/mL (<0.06)
[2017-08-06] MEDS ORDERED: XARELTO20 MG PO (03:43)
[2017-08-06 08:12] VITALS: BP 102/67
[2017-08-06 09:30] VITALS: BP 100/74
[2017-08-06 12:50] VITALS: BP 106/74
[2017-08-06 21:30] VITALS: BP 103/70
[2017-08-07 03:37] LABS: HEMATOCRIT 46.8 % (42.0-52.0); HEMOGLOBIN 15.8 gm/dL (14.0-18.0); MCHC 33.7 g/dL (28.0-37.0); MCV 95.1 fL (80.0-100.0); RBC 4.92 mil/uL (4.50-6.00); RDW 12.8 % (10.5-14.5); WBC 11.9 thou/uL (4.0-11.0)
[2017-08-07 03:41] LABS: CALCIUM 8.7 mg/dL (8.5-10.1); CREATININE 0.9 mg/dL (0.7-1.3); MAGNESIUM 2.3 mg/dL (1.8-2.4); POTASSIUM 4.3 mmol/L (3.5-5.1)
[2017-08-07 04:50] VITALS: BP 97/65
[2017-08-07 04:56] LABS: ABSOLUTE NEUTROPHILS 11.7 thou/uL (1.4-8.2)
[2017-08-07 04:57] LABS: LARGE PLATELETS RARE; PLATELET COUNT 182 thou/uL (150-400)
[2017-08-07 07:20] VITALS: BP 104/73
[2017-08-07 11:30] VITALS: BP 110/73
[2017-08-07 15:35] VITALS: BP 110/72
[2017-08-07 19:34] VITALS: BP 106/71
[2017-08-08 03:35] VITALS: BP 109/75
[2017-08-08 07:45] VITALS: BP 114/78
[2017-08-08 11:35] VITALS: BP 117/85
[2017-08-08 15:40] VITALS: BP 117/78
[2017-08-08 19:30] VITALS: BP 106/77
[2017-08-09 03:32] VITALS: BP 97/68
[2017-08-09 07:31] VITALS: BP 110/77
[2017-08-09 11:59] VITALS: BP 114/84
[2017-08-09 15:30] VITALS: BP 122/74
[2017-08-09 19:16] VITALS: BP 118/79
[2017-08-10 03:47] VITALS: BP 105/72
[2017-08-10 03:54] LABS: CALCIUM 9.2 mg/dL (8.5-10.1); CREATININE 0.8 mg/dL (0.7-1.3); MAGNESIUM 2.4 mg/dL (1.8-2.4); POTASSIUM 4.5 mmol/L (3.5-5.1)
[2017-08-10 05:39] LABS: HEMOGLOBIN 15.4 gm/dL (14.0-18.0); MCH 32.1 pg (26.0-34.0); MCHC 33.4 g/dL (28.0-37.0); MCV 96.1 fL (80.0-100.0); RBC 4.78 mil/uL (4.50-6.00); RDW 13.1 % (10.5-14.5); WBC 11.9 thou/uL (4.0-11.0)
[2017-08-10 06:41] LABS: HCO3 35.4 mmol/L (22.0-26.0); PCO2 59.3 mmHg (35.0-45.0); PO2 72.1 mmHg (80.0-100.0); pH 7.394 (7.360-7.450); sO2 94.1 % (92.0-98.0)
[2017-08-10 07:28] VITALS: BP 113/75
[2017-08-10 11:53] VITALS: BP 116/79
[2017-08-10 15:19] VITALS: BP 157/100
[2017-08-10 15:54] LABS: BE(vivo) 7.5 mmol/L (-2 to +3); PCO2 78.9 mmHg (35.0-45.0); PO2 341.8 mmHg (80.0-100.0); pH 7.301 (7.360-7.450); sO2 99.7 % (92.0-98.0)
[2017-08-10 19:07] VITALS: BP 113/80
[2017-08-11 03:39] VITALS: BP 116/87
[2017-08-11 08:00] VITALS: BP 113/83
[2017-08-11 11:10] VITALS: BP 119/83
[2017-08-11 15:39] VITALS: BP 114/78
[2017-08-11 19:45] VITALS: BP 116/77
[2017-08-12 04:01] VITALS: BP 116/79
[2017-08-12 08:45] VITALS: BP 105/78
[2017-08-12 13:10] VITALS: BP 105/74
[2017-08-12 19:32] VITALS: BP 148/90
[2017-08-13 03:57] VITALS: BP 119/82
[2017-08-13 07:45] VITALS: BP 130/88
[2017-08-13 11:20] VITALS: BP 116/82
[2017-08-13 15:35] VITALS: BP 123/89
[2017-08-13 19:27] VITALS: BP 134/94
[2017-08-14 03:37] VITALS: BP 110/78
[2017-08-14 04:15] LABS: HEMATOCRIT 48.2 % (42.0-52.0); MCH 31.8 pg (26.0-34.0); MCHC 33.2 g/dL (28.0-37.0); MCV 95.8 fL (80.0-100.0); PLATELET COUNT 182 thou/uL (150-400); RBC 5.03 mil/uL (4.50-6.00); RDW 12.9 % (10.5-14.5); WBC 11.9 thou/uL (4.0-11.0)
[2017-08-14 04:27] LABS: ALBUMIN 3.1 g/dL (3.4-5.0); CALCIUM 8.8 mg/dL (8.5-10.1); CREATININE 0.9 mg/dL (0.7-1.3); POTASSIUM 4.4 mmol/L (3.5-5.1); TOTAL PROTEIN 5.7 g/dL (6.4-8.2)
[2017-08-14 07:17] VITALS: BP 110/83
[2017-08-14 08:12] LABS: ABSOLUTE NEUTROPHILS 11.1 thou/uL (1.4-8.2)
[2017-08-14 11:23] VITALS: BP 107/63
[2017-08-14] MEDS ORDERED: XARELTO20 MG PO (14:11)
[2017-08-14] MEDS ORDERED: PREDNISONE 10 M10 MG PO (14:14)
[2017-08-14 14:21] VITALS: BP 107/63
== END 2017-08-14 15:52 | disposition home or self-care (01) | DRG 871 ==
LOC: ER 03:06 → EROBS 04:31 → 2N 04:31 → ENTRNSPT 08-14 15:30 → EDTRNSPTSTS 08-14 15:35 → 2N 08-14 15:52
PROVIDERS: Emergency Medicine; Internal Medicine; Internal Medicine Geriatric Medicine; Internal Medicine Pulmonary Disease
PROC: 5A09557 Assistance with Respiratory Ventilation, Greater than 96 Consecutive Hours, Continuous Positive Airway Pressure (ICD-10-PCS; principal; 2017-08-06)
DX: A41.9 Sepsis, unspecified organism (principal); J18.9 Pneumonia, unspecified organism; J96.21 Acute and chronic respiratory failure with hypoxia; J96.22 Acute and chronic respiratory failure with hypercapnia; J44.0 Chronic obstructive pulmonary disease with (acute) lower respiratory infection; N17.9 Acute kidney failure, unspecified; J44.1 Chronic obstructive pulmonary disease with (acute) exacerbation; F32.9 Major depressive disorder, single episode, unspecified; E11.9 Type 2 diabetes mellitus without complications; F17.210 Nicotine dependence, cigarettes, uncomplicated; I27.20 Pulmonary hypertension, unspecified; E78.5 Hyperlipidemia, unspecified; E66.9 Obesity, unspecified; Z68.27 Body mass index [BMI] 27.0-27.9, adult; Z79.01 Long term (current) use of anticoagulants; Z86.711 Personal history of pulmonary embolism; Z90.49 Acquired absence of other specified parts of digestive tract; Z99.81 Dependence on supplemental oxygen; Z71.6 Tobacco abuse counseling
CPT/HCPCS: 10081

== ENCOUNTER → 2018-05-07 | Outpatient (CLI) | payer OTHER ==
[~2018-05-07] MED LIST changes: +XARELTO20 MG PO
== END ==
LOC: CAT 04-23 16:15 → EDSTATUS 05-03 12:05 → CAT 05-03 16:16
PROVIDERS: Internal Medicine
DX: J98.11 Atelectasis (principal); J43.2 Centrilobular emphysema; J98.4 Other disorders of lung; I25.10 Atherosclerotic heart disease of native coronary artery without angina pectoris; E11.9 Type 2 diabetes mellitus without complications; E78.00 Pure hypercholesterolemia, unspecified

== ENCOUNTER → 2018-11-25 | Outpatient (CLI) | payer OTHER | LOC: RAD 14:29 | DX: J44.9 Chronic obstructive pulmonary disease, unspecified (principal) ==

== ENCOUNTER 2018-12-29 18:49 | Inpatient (IN) | payer OTHER ==
[~2018-12-29] VITALS: Ht 165.1 cm; Wt 85.8 kg
[2018-12-29 18:49] VITALS: BP 107/76
[~2018-12-29 18:49] MED LIST changes: +ALENDRONATE SOD70 MG PO
[2018-12-29 19:07] LABS: ABSOLUTE NEUTROPHILS 8.8 thou/uL (1.4-8.2); BASOPHILS 0.5 % (0.0-2.0); EOSINOPHILS 0.3 % (0.0-3.0); HEMATOCRIT 50.1 % (42.0-52.0); LYMPHOCYTES 9.8 % (24.0-44.0); MCH 32.2 pg (26.0-34.0); MCHC 33.9 g/dL (28.0-37.0); MCV 95.2 fL (80.0-100.0); MONOCYTES 5.7 % (1.0-8.0); PLATELET COUNT 206 thou/uL (150-400); POLYS 83.7 % (36.0-66.0); RBC 5.26 mil/uL (4.50-6.00); RDW 12.7 % (10.5-14.5); WBC 10.6 thou/uL (4.0-11.0)
[2018-12-29 19:13] LABS: BE(vivo) 1.7 mmol/L (-2 to +3); HCO3 28.3 mmol/L (22.0-26.0); PCO2 51.2 mmHg (35.0-45.0); PO2 279.6 mmHg (80.0-100.0); pH 7.361 (7.360-7.450); sO2 99.6 % (92.0-98.0)
[2018-12-29 19:15] LABS: CALCIUM 10.2 mg/dL (8.5-10.1); POTASSIUM 4.1 mmol/L (3.5-5.1)
[2018-12-29 19:25] LABS: ALBUMIN 4.1 g/dL (3.4-5.0); MAGNESIUM 1.7 mg/dL (1.8-2.4); TOTAL BILIRUBIN 1.1 mg/dL (<0.1-1.0); TOTAL PROTEIN 7.2 g/dL (6.4-8.2)
[2018-12-29 19:27] LABS: TROPONIN-I 0.7 ng/mL (<0.06)
[2018-12-29 20:35] VITALS: BP 93/64
--- NOTE | 2018-12-29 22:44 | EKG ---
[address] [address] ELECTROCARDIOGRAM REPORT Name: DEMARMALIKA GRAJEDA 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: KKODJOVI : 1955 Requested By: Gregorio Hinds Order Number: [id number] MD: Omid Restrepo Measurements Intervals [place] Rate: 90 P: 77 TN: 148 QRS: 76 QRSD: 94 T: 55 QT: 336 QTc: 411 Interpretive Statements Sinus rhythm Compared to ECG 08/06/2017 03:14:47 Sinus tachycardia no longer present Electronically Signed On 12-29-2018 22:43:58 CDT by Omid Restrepo [email or web address] ��������������������������������������������� <ELECTRONICALLY SIGNED> ���������������������������������������� By: Omid Restrepo MD ��������������������������������������������� 12/29/18 2243 1856 185 MD EMMY Kingsley
[2018-12-29] MEDS ORDERED: PRAVACHOL40 MG PO (23:58)
[2018-12-30] MEDS ORDERED: TOPROL XL25 MG PO (00:03)
[2018-12-30 01:00] VITALS: BP 95/61
[2018-12-30 04:00] VITALS: BP 99/59
[2018-12-30 07:30] VITALS: BP 83/59
[2018-12-30 08:58] LABS: CHOLESTEROL 176 mg/dL (<200); HDL CHOLESTEROL 63 mg/dL (>40); LDL CHOLESTEROL 98 mg/dL (<100); TC:HDL 2.8 Ratio (Not establshd); TRIGLYCERIDE 76 mg/dL (<150); VLDL 15 mg/dL (<40)
--- NOTE | 2018-12-30 12:24 | 2DMMODE ---
[facility] [address] [place] [address] 2 D/M-MODE ECHOCARDIOGRAM Name: MALIKA BENZ NICCI Room #: 203-P [facility] IN M.R.#: [id number] ������������� Admission: 12/29/18 ������������� Attend Phys: Bryan Galvan, Discharge: ��� ������������� ��� Date of : 59 Date of Service: 12/30/18 1224 �� Report #: [id number] �������� ��������������������������������������������[id number] THIS REPORT FOR: //name// APPROVED REPORT Study performed: 12/30/2018 09:15:33 EXAM: Comprehensive 2D, Doppler, and color-flow Echocardiogram Patient Location: Bedside Room #: 203 Status: routine BSA: 1.92 HR: 54 bpm BP: 99/59 mmHg Rhythm: Bradycardia Other Information Study Quality: Technically DifficultTechnically Limited Indications COPD Dyspnea Hypertension/HDD 2D Dimensions IVSd: 9.52 (7-11mm) LVOT Diam: 21.68 (18-24mm) LVDd: 36.77 mm PWd: 10.39 (7-11mm) Ascending Ao: 29.38 (22-36mm) LVDs: 27.31 (25-40mm) Aortic Root: 28.31 mm IVC: 25.00 mm Aortic Valve AoV Peak Ed.: 1.32 m/s AO Peak Gr.: 6.93 mmHg LVOT Max P.65 mmHg LVOT Max V: 0.96 m/s RADHA Vmax: 2.68 cm2 Mitral Valve E/A Ratio: 0.8 MV Decel. Time: 369.29 ms MV E Max Ed.: 0.42 m/s MV A Ed.: 0.54 m/s MV PHT: 107.09 ms IVRT: 156.86 ms [facility] [address] [place] [address] 2 D/M-MODE ECHOCARDIOGRAM Name: MALIKA BENZ Room #: 203-P [facility] IN M.R.#: [id number] ������������� Admission: 12/29/18 ������������� Attend Phys: Bryan Galvan, Discharge: ��� ������������� ��� Date of : 59 Date of Service: 12/30/18 1224 �� Report #: [id number] �������� ��������������������������������������������[id number] Pulmonary Valve PV Peak Ed.: 1.16 m/s PV Peak Gr.: 5.41 mmHg Pulmonary Vein P Vein S: 0.51 m/s P Vein A: 0.28 m/s P Vein D: 0.25 m/s P Vein A Dur.: 115.3 msec P Vein S/D Ratio: 2.04 Tricuspid Valve TR Peak Ed.: 2.80 m/s TR Peak Gr.: 31.34 mmHg PA Pressure: 41.00 mmHg Left Ventricle The left ventricle is normal size. There is normal LV segmental wall motion. There is normal left ventricular wall thickness. The left ventricular systolic function is normal. The left ventricular ejection fraction is within the normal range. LVEF is 55-60%. Grade I - abnormal relaxation pattern. Right Ventricle The right ventricle is normal size. The right ventricular systolic function is normal. Atria The left atrium size is normal. Right atrium is dilated. Aortic Valve The aortic valve is normal in structure. No aortic regurgitation is present. There is no aortic valvular stenosis. Mitral Valve The mitral valve is normal in structure. There is no mitral valve regurgitation noted. No evidence of mitral valve stenosis. Tricuspid Valve The tricuspid valve is normal in structure. There is mild tricuspid regurgitation. Estimated PAP 41 mmHg. There is mild-moderate pulmonary hypertension. Pulmonic Valve The pulmonary valve is normal in structure. There is no pulmonic valvular regurgitation. [employer] [facility] [address] [place] [address] 2 D/M-MODE ECHOCARDIOGRAM Name: MALIKA BENZ NICCI Room #: 203-P [facility] IN M.R.#: [id number] ������������� Admission: 12/29/18 ������������� Attend Phys: Bryan Galvan, Discharge: ��� ������������� ��� Date of : 59 Date of Service: 12/30/18 1224 �� Report #: [id number] �������� ��������������������������������������������[id number] The aortic root is normal in size. IVC is dilated and collapses <50% with inspiration. Pericardium There is no pericardial effusion. <Conclusion> The left ventricle is normal size. LVEF is 55-60%. Grade I - abnormal relaxation pattern. The right ventricle is normal size. The left atrium size is normal. Right atrium is dilated. The aortic valve is normal in structure. There is no mitral valve regurgitation noted. There is mild tricuspid regurgitation. Estimated PAP 41 mmHg. There is mild-moderate pulmonary hypertension. The aortic root is normal in size. There is no pericardial effusion. ��������������������������������������������� <ELECTRONICALLY SIGNED> ���������������������������������������� By: Scar Rivero MD, FACC ��������������������������������������������� 12/30/18 1224 1224 1224 Scar Rivero MD, FACC /INF
[2018-12-30] MEDS ORDERED: PROAIR HFA8.5 GM INH (12:48)
[2018-12-30] MEDS ORDERED: ALBUTEROL2.5 MG/31 INH (12:49)
[2018-12-30] MEDS ORDERED: ZITHROMAX500 MG PO (12:49)
[2018-12-30 20:39] VITALS: BP 104/58
[2018-12-31 03:48] VITALS: BP 104/66
[2018-12-31 07:28] VITALS: BP 94/64
[2018-12-31 09:01] LABS: HEMATOCRIT 46.1 % (42.0-52.0); HEMOGLOBIN 15.3 gm/dL (14.0-18.0); MCH 31.9 pg (26.0-34.0); MCHC 33.2 g/dL (28.0-37.0); MCV 95.8 fL (80.0-100.0); RBC 4.81 mil/uL (4.50-6.00); RDW 12.6 % (10.5-14.5); WBC 15.7 thou/uL (4.0-11.0)
[2018-12-31 09:11] LABS: CALCIUM 8.9 mg/dL (8.5-10.1); CREATININE 0.8 mg/dL (0.7-1.3); MAGNESIUM 2.1 mg/dL (1.8-2.4); POTASSIUM 4.5 mmol/L (3.5-5.1)
[2018-12-31] MEDS ORDERED: BUSPIRONE HCL10 MG PO (09:21)
[2018-12-31] MEDS ORDERED: BUSPIRONE HCL15 MG PO (09:26)
[2018-12-31 11:12] VITALS: BP 109/65
[2018-12-31 15:21] VITALS: BP 109/63
[2018-12-31 20:05] VITALS: BP 113/71; BP 159/72
[2019-01-01 04:45] VITALS: BP 103/73
[2019-01-01 04:57] LABS: HEMATOCRIT 42.7 % (42.0-52.0); HEMOGLOBIN 14.5 gm/dL (14.0-18.0); MCH 32.3 pg (26.0-34.0); MCHC 33.9 g/dL (28.0-37.0); MCV 95.4 fL (80.0-100.0); RBC 4.48 mil/uL (4.50-6.00); RDW 12.7 % (10.5-14.5); WBC 16.5 thou/uL (4.0-11.0)
[2019-01-01 05:06] LABS: CALCIUM 8.6 mg/dL (8.5-10.1); CREATININE 0.9 mg/dL (0.7-1.3); MAGNESIUM 2.3 mg/dL (1.8-2.4); POTASSIUM 4.5 mmol/L (3.5-5.1)
[2019-01-01 08:45] VITALS: BP 114/74
[2019-01-01 12:30] VITALS: BP 108/67
[2019-01-01 17:00] VITALS: BP 128/74
[2019-01-01 20:15] VITALS: BP 115/61
[2019-01-02 04:40] LABS: CALCIUM 8.5 mg/dL (8.5-10.1); CREATININE 0.8 mg/dL (0.7-1.3); MAGNESIUM 2.1 mg/dL (1.8-2.4); POTASSIUM 4.5 mmol/L (3.5-5.1)
[2019-01-02 04:45] VITALS: BP 111/76
[2019-01-02 05:40] LABS: HEMATOCRIT 43.9 % (42.0-52.0); HEMOGLOBIN 14.6 gm/dL (14.0-18.0); MCH 32.1 pg (26.0-34.0); MCHC 33.2 g/dL (28.0-37.0); MCV 96.8 fL (80.0-100.0); RBC 4.54 mil/uL (4.50-6.00); RDW 12.4 % (10.5-14.5); WBC 13.2 thou/uL (4.0-11.0)
[2019-01-02 09:27] VITALS: BP 98/53
[2019-01-02 09:32] VITALS: BP 107/71
[2019-01-02 11:34] VITALS: BP 101/64
[2019-01-02 16:54] VITALS: BP 107/69
[2019-01-02 20:35] VITALS: BP 116/67
[2019-01-03 04:00] VITALS: BP 108/70
[2019-01-03 05:19] LABS: HEMOGLOBIN 14.5 gm/dL (14.0-18.0); MCH 31.8 pg (26.0-34.0); MCV 96.4 fL (80.0-100.0); RBC 4.57 mil/uL (4.50-6.00); RDW 12.8 % (10.5-14.5); WBC 11.6 thou/uL (4.0-11.0)
[2019-01-03 05:32] LABS: CALCIUM 8.3 mg/dL (8.5-10.1); CREATININE 0.7 mg/dL (0.7-1.3); MAGNESIUM 2.1 mg/dL (1.8-2.4); POTASSIUM 4.2 mmol/L (3.5-5.1)
[2019-01-03 07:52] VITALS: BP 94/55
[2019-01-03 15:22] VITALS: BP 98/67
[2019-01-03 20:00] VITALS: BP 120/79
[2019-01-04 04:30] VITALS: BP 140/96
[2019-01-04 05:37] LABS: HEMATOCRIT 44.3 % (42.0-52.0); HEMOGLOBIN 14.9 gm/dL (14.0-18.0); MCHC 33.6 g/dL (28.0-37.0); MCV 95.2 fL (80.0-100.0); RBC 4.65 mil/uL (4.50-6.00); RDW 12.8 % (10.5-14.5); WBC 12.6 thou/uL (4.0-11.0)
[2019-01-04 05:44] LABS: CALCIUM 8.7 mg/dL (8.5-10.1); CREATININE 0.9 mg/dL (0.7-1.3); MAGNESIUM 2.2 mg/dL (1.8-2.4); POTASSIUM 4.3 mmol/L (3.5-5.1)
[2019-01-04 07:32] VITALS: BP 111/81
[2019-01-04 11:25] VITALS: BP 105/70
[2019-01-04 13:47] LABS: BE(vivo) 4.7 mmol/L (-2 to +3); HCO3 27.8 mmol/L (22.0-26.0); PCO2 36.5 mmHg (35.0-45.0); PO2 92.6 mmHg (80.0-100.0); pH 7.499 (7.360-7.450); sO2 97.7 % (92.0-98.0)
[2019-01-04 16:44] VITALS: BP 108/81
[2019-01-04 19:20] VITALS: BP 129/92
[2019-01-05 04:23] VITALS: BP 112/79
[2019-01-05 05:04] LABS: HEMATOCRIT 45.8 % (42.0-52.0); HEMOGLOBIN 15.3 gm/dL (14.0-18.0); MCH 31.8 pg (26.0-34.0); MCHC 33.3 g/dL (28.0-37.0); MCV 95.5 fL (80.0-100.0); RBC 4.8 mil/uL (4.50-6.00); RDW 12.7 % (10.5-14.5); WBC 13.2 thou/uL (4.0-11.0)
[2019-01-05 05:16] LABS: CALCIUM 8.8 mg/dL (8.5-10.1); CREATININE 0.9 mg/dL (0.7-1.3); POTASSIUM 4.4 mmol/L (3.5-5.1)
[2019-01-05 08:23] VITALS: BP 116/70
[2019-01-05 12:14] VITALS: BP 107/69
[2019-01-05 15:15] VITALS: BP 113/71
[2019-01-05 19:25] VITALS: BP 133/87
[2019-01-06 03:13] VITALS: BP 126/77
[2019-01-06 08:00] VITALS: BP 98/70
[2019-01-06 11:14] VITALS: BP 120/79
[2019-01-06 16:00] VITALS: BP 108/76
[2019-01-06 20:57] VITALS: BP 102/70
[2019-01-07 04:45] VITALS: BP 104/71
[2019-01-07 08:00] VITALS: BP 97/72
[2019-01-07] MEDS ORDERED: XARELTO20 MG PO (10:47)
[2019-01-07] MEDS ORDERED: PROTONIX40 M1 PO (10:48)
[2019-01-07] MEDS ORDERED: PREDNISONE 10 M10 MG PO (10:49)
[2019-01-07 11:33] VITALS: BP 97/72
[2019-01-07 12:00] VITALS: BP 113/80
[2019-01-08 10:48] VITALS: BP 97/72
== END 2019-01-07 14:19 | disposition home health service (06) | DRG 193 ==
LOC: ER 18:49 → 2N 22:48 → ENTRNSPT 01-07 14:07 → EDTRNSPTSTS 01-07 14:16 → 2N 01-07 14:19
PROVIDERS: Emergency Medicine; Hospitalist; Internal Medicine Cardiovascular Disease; Internal Medicine Pulmonary Disease; ADMIT Internal Medicine
PROC: 5A09357 Assistance with Respiratory Ventilation, Less than 24 Consecutive Hours, Continuous Positive Airway Pressure (ICD-10-PCS; principal; 2019-01-02)
PROC: 5A09357 Assistance with Respiratory Ventilation, Less than 24 Consecutive Hours, Continuous Positive Airway Pressure (ICD-10-PCS; 2019-01-03)
PROC: 5A09357 Assistance with Respiratory Ventilation, Less than 24 Consecutive Hours, Continuous Positive Airway Pressure (ICD-10-PCS; 2019-01-04)
PROC: 5A09357 Assistance with Respiratory Ventilation, Less than 24 Consecutive Hours, Continuous Positive Airway Pressure (ICD-10-PCS; 2019-01-05)
PROC: 5A09357 Assistance with Respiratory Ventilation, Less than 24 Consecutive Hours, Continuous Positive Airway Pressure (ICD-10-PCS; 2019-01-06)
PROC: 5A09357 Assistance with Respiratory Ventilation, Less than 24 Consecutive Hours, Continuous Positive Airway Pressure (ICD-10-PCS; 2019-01-07)
DX: J18.9 Pneumonia, unspecified organism (principal); J96.21 Acute and chronic respiratory failure with hypoxia; J96.22 Acute and chronic respiratory failure with hypercapnia; J44.1 Chronic obstructive pulmonary disease with (acute) exacerbation; J98.11 Atelectasis; F32.9 Major depressive disorder, single episode, unspecified; E11.9 Type 2 diabetes mellitus without complications; E78.5 Hyperlipidemia, unspecified; E83.42 Hypomagnesemia; I10 Essential (primary) hypertension; I27.20 Pulmonary hypertension, unspecified; Z90.49 Acquired absence of other specified parts of digestive tract; Z87.891 Personal history of nicotine dependence; Z86.711 Personal history of pulmonary embolism; Z99.81 Dependence on supplemental oxygen; Z79.899 Other long term (current) drug therapy; Z82.49 Family history of ischemic heart disease and other diseases of the circulatory system
CPT/HCPCS: 10081; 10797

== ENCOUNTER → 2019-01-29 | Outpatient (CLI) | payer OTHER ==
[~2019-01-29] MED LIST changes: +BUSPIRONE HCL15 MG PO; +PRAVACHOL40 MG PO; +PROAIR HFA8.5 GM INH; +PROTONIX40 M1 PO; +TOPROL XL25 MG PO; +ZITHROMAX500 MG PO
== END ==
LOC: RAD 13:14
DX: D71 Functional disorders of polymorphonuclear neutrophils (principal); J98.4 Other disorders of lung

== ENCOUNTER → 2019-03-03 | Outpatient (CLI) | payer OTHER ==
[~2019-03-03] VITALS: Ht 167.6 cm; Wt 86.2 kg
[2019-03-03 08:01] LABS: HEMATOCRIT 40.2 % (42.0-52.0); HEMOGLOBIN 13.4 gm/dL (14.0-18.0); MCH 32.1 pg (26.0-34.0); MCHC 33.3 g/dL (28.0-37.0); MCV 96.5 fL (80.0-100.0); RBC 4.17 mil/uL (4.50-6.00); RDW 13.8 % (10.5-14.5); WBC 11.8 thou/uL (4.0-11.0)
[2019-03-03 08:14] LABS: CALCIUM 9.3 mg/dL (8.5-10.1); CREATININE 0.9 mg/dL (0.7-1.3); POTASSIUM 3.4 mmol/L (3.5-5.1)
[2019-03-03 08:26] VITALS: BP 96/63
--- NOTE | 2019-03-03 18:38 | CATHLAB ---
[facility] [address] [place] [address] INVASIVE PROCEDURE REPORT Name: VIDAL BENZ Room #: REG Julianna#: [id number] ������������� Admission: 03/03/19 ������������� Attend Phys: Scar Rivero, Discharge: ��� ������������� ��� Date of : 59 Date of Service: 03/03/19 1837 �� Report #: [id number] �������� ��������������������������������������������[id number] THIS REPORT FOR: //name// APPROVED REPORT Study performed: 03/03/2019 09:57:03 Patient Details Patient Status: Out-Patient Room #: The patient is a 63 year-old male Event Personnel Scar Rivero Iron Carrier, Deepika Avila RTR, APPARATUS OPERATOR Monitor, Ayesha Bates RN, Leighton Siddiqi RTR Scrub Procedures Performed Art Access - R femoral artery* Misael Access - R femoral vein Right and Left Heart Cath w/or w/o Coronarie [id number] [facility] Aortogram Abdominal Peripheral Angio [id number] [id number] Initial Mod Sed Same Phys/QHP Gr5y 549304 Hemostasis w/ Mynx Hemostasis with Manual pressure Indication Dyspnea Procedure Narrative The Right Groin^ was infiltrated with 1% Lidocaine subcutaneous anesthesia. A Right Heart Catheterization was performed with a 7 Fr. [place]-Cate catheter and pressure were recorded. Cardiac outputs were obtained by the Thermal Dilution method. A Easel 6FR Sheath #[id number] sheath was inserted into the RFA. Coronary angiography was performed using coronary diagnostic catheters. The right coronary system was accessed and visualized with a JR4 catheter. The left coronary system was accessed and visualized with a JL5 catheter. The left ventricle was accessed and visualized with a Pigtail catheter. Left ventriculogram was performed in 30 degree projection. An aortogram of the abdominal aorta was performed. Pre-demployment femoral angiogram was performed . Closure device was deployed with a 6 Fr MYNXGRIP 6/7F #[id number]. Hemostasis was obtained with manual pressure following sheath removal without any complications. The patient tolerated the procedure well and there were no complications associated with the procedure. There was no hematoma. Intraoperative Conscious Sedation [address] [address] INVASIVE PROCEDURE REPORT Name: VIDAL BENZ Room #: REG Julianna#: [id number] ������������� Admission: 03/03/19 ������������� Attend Phys: Scar Rivero, Discharge: ��� ������������� ��� Date of : 59 Date of Service: 03/03/19 1837 �� Report #: [id number] �������� ��������������������������������������������[id number] Sedation start time: 09:57 Case end Time: 10:25 Fentanyl 50 mcg Versed 1 mg Fluoro Time: 2.48 minutes Dose: DAP 5432.50 cGycm2 565 mGy Contrast Type and Amount: Omnipaque 110 ml Hemodynamics The right atrial mean pressure is 12 mmHg. The right ventricular pressure is 57/6 mmHg. The pulmonary artery pressure is 55/21 mmHg with a mean of 36 mmHg. The mean pulmonary capillary wedge pressure is 17 mmHg. The aortic pressure is 103/63 mmHg with a mean of 82 mmHg. The left ventricular pressure is 107/9 mmHg with a mean of mmHg. The left ventricular end diastolic pressure is 27 mmHg. The cardiac output using thermo method is 5.30 L/min. The cardiac index using thermo method is 2.70 L/min/m2. Conclusion #1 successful right heart catheterization with hemodynamics as described above findings consistent with mild to moderate pulmonary hypertension #2 normal left ventricular size and systolic function EF 60% #3 abdominal aorta is mildly tortuous without evidence of aneurysm. Renal arteries appear patent. #4 selective coronary angiography right dominant system there is minimal plaquing in all 3 coronary vessels no significant disease noted Conditions and plan continue aggressive risk factor modification. Minimal elevation in wedge pressure. Findings are more consistent with a pulmonary hypertension not related to volume overload. Follow-up with Dr. Vidal Snow his aircraft log clerk. ��������������������������������������������� <ELECTRONICALLY SIGNED> ���������������������������������������� By: Scar Rivero MD, FACC ��������������������������������������������� 03/03/191836 36 36 Scar Rivero MD, FACC /INF
--- NOTE | 2019-03-04 18:18 | EKG ---
[place] [address] [facility] [place] [address] ELECTROCARDIOGRAM REPORT Name: MALIKA BENZ [facility] [id number] ������������������ Admission: 03/03/19 ������������������ Attend Phys: Scar Rivero MD, Discharge: ������������������ Date of : 59 Report #: [id number] ����������������������������������������������������������������� [id number] THIS REPORT FOR: //name// [facility] Test Date: 2019-03-03 Test Time: 07:46:59 Pat Name: MALIKA BENZ Department: Room: Gender: M Spinning Doffer: Casie MCKENZIE : 1955 Requested By: Scar Rivero Order Number: [id number] MD: Bryce Winter Measurements Intervals [place] Rate: 63 P: 70 [place]: 144 QRS: 55 QRSD: 107 T: 17 QT: 409 QTc: 419 Interpretive Statements Sinus rhythm Normal tracing Compared to ECG 12/29/2018 18:56:43 No significant changes Electronically Signed On 03-04-2019 18:18:06 CDT by Bryce Winter [email or web address] ��������������������������������������������� <ELECTRONICALLY SIGNED> ���������������������������������������� By: Bryce Winter MD, [facility] ��������������������������������������������� 03/04/19 1818 D: 07/745 5 Bryce Winter MD, FACC /EPI
== END | disposition home or self-care (01) ==
LOC: CATH 06:50
PROVIDERS: Internal Medicine Cardiovascular Disease
DX: I25.10 Atherosclerotic heart disease of native coronary artery without angina pectoris (principal); I27.20 Pulmonary hypertension, unspecified; J44.1 Chronic obstructive pulmonary disease with (acute) exacerbation; I26.99 Other pulmonary embolism without acute cor pulmonale; F32.9 Major depressive disorder, single episode, unspecified; E78.5 Hyperlipidemia, unspecified; K21.9 Gastro-esophageal reflux disease without esophagitis; Z90.49 Acquired absence of other specified parts of digestive tract; Z98.890 Other specified postprocedural states; Z87.891 Personal history of nicotine dependence; Z79.899 Other long term (current) drug therapy

== ENCOUNTER → 2019-06-09 | Outpatient (CLI) | payer OTHER | LOC: RAD 12:59 | DX: J98.4 Other disorders of lung (principal); J98.11 Atelectasis ==

== ENCOUNTER 2019-07-04 12:13 | Inpatient (IN) | payer OTHER ==
[~2019-07-04] VITALS: Ht 167.6 cm; Wt 90.7 kg
[2019-07-04 12:15] VITALS: BP 128/86
[2019-07-04 12:43] LABS: ABSOLUTE NEUTROPHILS 11.1 thou/uL (1.4-8.2); BASOPHILS 0.3 % (0.0-2.0); EOSINOPHILS 0.1 % (0.0-3.0); HEMOGLOBIN 14.7 gm/dL (14.0-18.0); LYMPHOCYTES 3.7 % (24.0-44.0); MCH 30.9 pg (26.0-34.0); MCHC 32.7 g/dL (28.0-37.0); MCV 94.4 fL (80.0-100.0); MONOCYTES 1.4 % (1.0-8.0); PLATELET COUNT 214 thou/uL (150-400); POLYS 94.5 % (36.0-66.0); RBC 4.77 mil/uL (4.50-6.00); RDW 13.1 % (10.5-14.5); WBC 11.7 thou/uL (4.0-11.0)
[2019-07-04 12:50] LABS: CALCIUM 9.6 mg/dL (8.5-10.1); POTASSIUM 3.8 mmol/L (3.5-5.1)
[2019-07-04 12:57] LABS: BE(vivo) 1.7 mmol/L (-2 to +3); HCO3 28.3 mmol/L (22.0-26.0); PCO2 51.9 mmHg (35.0-45.0); PO2 95.4 mmHg (80.0-100.0); pH 7.355 (7.360-7.450); sO2 96.9 % (92.0-98.0)
[2019-07-04] MEDS ORDERED: AZITHROMYCIN500 MG PO (13:07)
[2019-07-04] MEDS ORDERED: PREDNISONE 10 M10 M1 PO (13:08)
[2019-07-04 14:50] VITALS: BP 117/71
[2019-07-04 15:01] VITALS: BP 105/67
[2019-07-04 15:15] VITALS: BP 98/65
--- NOTE | 2019-07-04 15:47 | EKG ---
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: ADRIA : 1955 Requested By: Ade Parker Order Number: [id number] MD: Bryce Winter Measurements Intervals [place] Rate: 96 P: 83 [place]: 137 QRS: 78 QRSD: 97 T: -3 QT: 345 QTc: 436 Interpretive Statements Sinus rhythm Atrial premature complex Borderline repolarization abnormality Compared to ECG 03/03/2019 07:46:59 Atrial premature complex(es) now present Electronically Signed On 07-04-2019 15:46:48 MIX HOUSE OPERATOR by Bryce Winter [email or web address] <ELECTRONICALLY SIGNED> By: Bryce Winter MD, [facility] 07/04/19 1546 1230 1230 Bryce Winter MD, [facility] /EPI
--- NOTE | 2019-07-04 18:27 | NUR ---
PT CARE ASSUMED APPROX 1530. ASSESSMENT CHARTED. DENIES PAIN AND SOA. VSS. UP WITH STEADY GAIT BUT REPORTEDLY FEELS WEAKER SO PT IS AGREEABLE TO CALLING FOR ASSISTANCE WITH AMBULATION PER NSG REQUEST. PT DENIES QUESTIONS OR CONCERNS REGARDING POC OR ADMISSION. NO DISTRESS NOTED.
[2019-07-04 19:12] VITALS: BP 104/67
[2019-07-05 04:34] VITALS: BP 102/64
[2019-07-05 07:40] VITALS: BP 91/58
--- NOTE | 2019-07-05 07:41 | NUR ---
PATIENT COMPLAINS OF MILD PAIN WHEN COUGHING.ON OPTAFLOW.ON ZOSYN.MONITOR SHOWS SR.DENIES NEEDS.POC CONTINUED.
[2019-07-05 11:45] VITALS: BP 102/61
[2019-07-05 15:35] VITALS: BP 118/68
--- NOTE | 2019-07-05 17:32 | NUR ---
PT CARE ASSUMED APPROX 0700. ASSESSMENT CHARTED. PT DENIES PAIN AND SOA. VSS. UP WITH STEADY GAIT. BS MANAGED WITH SSI. PT TOLERATING POC. DENIES QUESTIONS OR CONCERNS REGARDING POC. NO DISTRESS NOTED.
[2019-07-05 20:04] VITALS: BP 99/66
--- NOTE | 2019-07-06 01:42 | NUR ---
A/O X 4.INSTRUCTED TO CALL WHEN UP TO THE BEDSIDE COMMODE.ON OPTIFLOW.BEDTIME BLOOD GLUCOSE IS 155.SSI GIVEN.MONITOR SHOWS SINUS RHYTHM.POC CONTINUED.
[2019-07-06 04:21] VITALS: BP 100/64
[2019-07-06 04:32] LABS: BE(vivo) 2.1 mmol/L (-2 to +3); HCO3 27.1 mmol/L (22.0-26.0); PCO2 43.5 mmHg (35.0-45.0); PO2 68.3 mmHg (80.0-100.0); pH 7.412 (7.360-7.450); sO2 93.8 % (92.0-98.0)
[2019-07-06 04:58] LABS: CALCIUM 9.3 mg/dL (8.5-10.1); CREATININE 0.9 mg/dL (0.7-1.3); MAGNESIUM 2.1 mg/dL (1.8-2.4)
[2019-07-06 05:04] LABS: HEMATOCRIT 39.8 % (42.0-52.0); HEMOGLOBIN 12.9 gm/dL (14.0-18.0); MCH 30.8 pg (26.0-34.0); MCHC 32.5 g/dL (28.0-37.0); MCV 94.9 fL (80.0-100.0); RBC 4.2 mil/uL (4.50-6.00); RDW 13.2 % (10.5-14.5); WBC 17.2 thou/uL (4.0-11.0)
[2019-07-06 07:50] VITALS: BP 99/68
[2019-07-06 11:50] VITALS: BP 95/66
[2019-07-06 16:30] VITALS: BP 103/75
--- NOTE | 2019-07-06 18:16 | NUR ---
pt resting in bed, tv on, optiflow nasal canula in use. pt denies pain, medication education done, pt up to bedside commode for bm, steady on his feet, short of breath upon ambulation, encouraged him to rest as possible.
[2019-07-06 20:05] VITALS: BP 111/71
--- NOTE | 2019-07-07 04:29 | NUR ---
1900, PT RESTING COMFORTABLLY IN HIS ROOM. AO X4. VITALS SIGN STABLE. PT GET EXTREME SOB WITH ACTIVITIES. MAINTAINED ON OPTFLOW O2 CANNULA , SATS>90. PT DENIES CHEST PAIN, N/V/D. VERY PLEASANT. ACHS BG 153. ON STEROIDS. WILL CONTINUE WITH CARE PLAN.
[2019-07-07 05:01] LABS: HEMATOCRIT 39.3 % (42.0-52.0); HEMOGLOBIN 12.8 gm/dL (14.0-18.0); MCH 30.8 pg (26.0-34.0); MCHC 32.6 g/dL (28.0-37.0); MCV 94.6 fL (80.0-100.0); RBC 4.16 mil/uL (4.50-6.00); RDW 13.2 % (10.5-14.5); WBC 15.1 thou/uL (4.0-11.0)
[2019-07-07 05:06] VITALS: BP 109/79
[2019-07-07 05:07] LABS: CALCIUM 9.2 mg/dL (8.5-10.1); CREATININE 0.8 mg/dL (0.7-1.3); POTASSIUM 4.2 mmol/L (3.5-5.1)
[2019-07-07 07:45] VITALS: BP 107/75
[2019-07-07 11:50] VITALS: BP 115/76
[2019-07-07 15:55] VITALS: BP 108/70
--- NOTE | 2019-07-07 16:17 | NUR ---
PT CARE ASSUMED APPROX 0800. ASSESSMENT CHARTED. PT DENIES PAIN AND SOA. VSS. O2 WEANED TO NS. PT TOLERATING AT THIS TIME. UP WITH STEADY GAIT. PT DENIES QUESTIONS AND CONCERNS REGARDING POC. TOLERATING POC. NO DISTRESS NOTED.
--- NOTE | 2019-07-07 16:25 | NUR ---
PT CARE TRANSFERRED TO ANOTHER NURSE AT THIS TIME. NO DISTRESS NOTED.
--- NOTE | 2019-07-07 16:34 | NUR ---
met with patient and at bedside. patient resides at home in independent home with . He has home oxygen via [employer] at 4 liters at rest and 6 liters with exertion. patient has Trilogy at home. He does not use any assistive device at home. Cont to drive and will use grocery cart as walker if needed in grocery store. Tenative plan home inependent at ri. casemgt following.
--- NOTE | 2019-07-07 17:33 | NUR ---
RECEIVED CARE FROM NURSE KEATING AT APPROX 1645. PT ALERT AND ORIENTED, DENIES PAIN. O2 SATS WNL ON 10L O2 WITH CONTINUOUS PULSE OX. PT UP AD [place], TOLERATING WELL. SPOUSE AT BEDSIDE. DENIES CHEST PAIN, SOB. PT CURRENTLY IN ROOM WITH SPOUSE EATING DINNER, DENIES CONCERNS/NEEDS AT THIS TIME. WILL CONTINUE TO MONITOR.
[2019-07-07 20:54] VITALS: BP 97/65
[2019-07-08 04:15] LABS: CALCIUM 9.4 mg/dL (8.5-10.1); CREATININE 0.9 mg/dL (0.7-1.3)
--- NOTE | 2019-07-08 04:44 | NUR ---
PT ALERT AND ORIENTED. MAINTAINED ON 12L OF NASAL CANNULA. PT O2 SATS IN LOWER 90S. STILL DESATS RAPIDLY WITH ANY ACTIVITIES. NOT SOME SOA OVER NIGHT , PRN NEBULIZER WAS ADMINISTERED. OTHER VITALS STABLE. DENIES CHEST PAIN, OR NAUSEA. NO OTHER CONCERNS . WILL CONTINUE TO MONITOR.
[2019-07-08 05:04] LABS: HEMATOCRIT 40.6 % (42.0-52.0); HEMOGLOBIN 13.3 gm/dL (14.0-18.0); MCH 30.8 pg (26.0-34.0); MCHC 32.7 g/dL (28.0-37.0); MCV 94.3 fL (80.0-100.0); RBC 4.31 mil/uL (4.50-6.00)
[2019-07-08 05:06] VITALS: BP 115/77
[2019-07-08 07:31] VITALS: BP 109/78
--- NOTE | 2019-07-08 11:03 | NUR ---
PT SITTING IN BED TV ON. PT STATES THAT HE KNOWS IT WILL BE A WHILE BEFORE HE IS ABLE TO GO HOME BECAUSE IT IS STILL HARD FOR HIM TO BREATH WHEN HE GETS UP TO MOVE AROUND. WILL CONTINUE TO MONITOR
[2019-07-08 11:18] VITALS: BP 102/72
[2019-07-08 15:10] VITALS: BP 112/75
[2019-07-08 20:00] VITALS: BP 100/66
[2019-07-09 04:30] VITALS: BP 113/73
--- NOTE | 2019-07-09 04:44 | NUR ---
PT ALERT AND ORIENTED. NO CONCERNS OVER NIGHT. ALERT AND ORIENTED. MAINTAINED ON 15L OF O2 HIGH FLOW CANNULA. DENIES PAIN. VITALS STABLE. EXPRESSES DESIRE TO INCREASE HIS ACTIVITY LEVEL. DENIES CHEST PAIN. NO NAUSEA, VOMITING OR DIARRHEA. CONTINUES WIITH IV ABX THERAPY, NEBULIZERS AND STEROIDS. WILL CONTINUE TO MONITOR.
[2019-07-09 05:22] LABS: HEMATOCRIT 42.1 % (42.0-52.0); HEMOGLOBIN 13.5 gm/dL (14.0-18.0); MCH 30.4 pg (26.0-34.0); MCV 95.2 fL (80.0-100.0); RBC 4.42 mil/uL (4.50-6.00); RDW 13.3 % (10.5-14.5); WBC 11.5 thou/uL (4.0-11.0)
[2019-07-09 05:44] LABS: CALCIUM 9.1 mg/dL (8.5-10.1); CREATININE 0.9 mg/dL (0.7-1.3); POTASSIUM 4.3 mmol/L (3.5-5.1)
[2019-07-09 08:14] VITALS: BP 117/73
--- NOTE | 2019-07-09 10:26 | NUR ---
Tenative plan for dc in am. Discussed again with patient need for out patient sleep study to rec CPAP/BIPAP at home. Plan home with HH. Offered HH options patient interested in [place]. Sent referral to determine if can accpt.
[2019-07-09 10:30] VITALS: BP 117/73
[2019-07-09 11:36] VITALS: BP 105/69
[2019-07-09 16:57] VITALS: BP 114/75
--- NOTE | 2019-07-09 18:10 | NUR ---
ASSUMMED PT CARE AT APPROXIMATELY 0700. PT A&O X4. ASSESSMENT CHARTED. FALL PRECAUTIONS IN PLACE. PT DENIES HAVING CHEST PAIN. PT DENIES HAVING ACUTE PAIN. PT STATES HE BECOMES SOB ON EXERSION. PT AMBULATED TO BATHROOM. PT DESATED. PT O2 L INCREASE TO STABLIZE O2 SAT. O2 SAT STABLE. EDUCATED TO PT THAT USING THE URINAL OR BEDSIDE COMMODE WOULD BE BEST FOR HAVING TO USE THE BATHROOM. PT STATED UNDERSTANDING AND DENIED HAVING FURTHER QUESTIONS. DR ORDERED TO START TITRATING OXYGEN DOWN. ORDER IMPLEMENTED. GRADUALLY TITRATING OXYGEN DOWN. O2 SAT STABLE. VITAL SIGNS STABLE. BLOOD SUGAR STABLE. PT COMFORTABLE IN BED. PT DENIES HAVING FURTHER CONCERNS.
[2019-07-09 19:45] VITALS: BP 103/76
[2019-07-10 04:12] VITALS: BP 124/86
--- NOTE | 2019-07-10 05:40 | NUR ---
ASSUMED PT CARE AT 1900. VSS. PT A&0X4. PT WAS STABLE ALL NIGHT, O2 TITRATED TO 6L LAST NIGHT, PT SATING AT 96%. NO COMPLAINTS OF PAIN OR DISCOMFORT, PT IS STABLE, WILL CONTINUE TO MONITOR.
[2019-07-10 07:35] VITALS: BP 103/83
--- NOTE | 2019-07-10 10:33 | NUR ---
AAOX4. CALM, COOPERATIVE. SOB WITH MINIMAL EXERTION. DIURESING PER URINAL. SR/ST PER TELE. FALL PRECAUTIONS IN PLACE. WILL CONTINUE TO MONITOR CLOSELY.
[2019-07-10 11:25] VITALS: BP 111/84
[2019-07-10 15:45] VITALS: BP 106/74
[2019-07-10 19:44] VITALS: BP 107/77
[2019-07-11 04:11] LABS: CALCIUM 9.2 mg/dL (8.5-10.1); CREATININE 0.9 mg/dL (0.7-1.3)
[2019-07-11 04:24] LABS: HEMATOCRIT 43.9 % (42.0-52.0); HEMOGLOBIN 14.3 gm/dL (14.0-18.0); MCH 30.7 pg (26.0-34.0); MCHC 32.7 g/dL (28.0-37.0); RBC 4.67 mil/uL (4.50-6.00); WBC 16.3 thou/uL (4.0-11.0)
[2019-07-11 05:15] VITALS: BP 108/77
--- NOTE | 2019-07-11 06:13 | NUR ---
ASSUMED PT CARE AT 1900. VSS. PT A&0X4. PT COUGHED UP DRIED BLOOD ONCE THIS SHIFT, PT IS STABLE, NOW ON 5L SATTING AT >92% PT IS STABLE, ADEQUATE URINE OUTPUT, WILL CONTINUE TO MONITOR.
[2019-07-11 08:23] VITALS: BP 112/73
[2019-07-11 11:29] VITALS: BP 107/76
[2019-07-11 16:25] VITALS: BP 96/63
[2019-07-11 19:26] VITALS: BP 101/71
--- NOTE | 2019-07-11 19:29 | NUR ---
ASSUMED CARE OF PATIENT AT 0700. ASSESSMENTS CHARTED. PATIENT RESTING COMFORTABLY IN BED WITH O2 SAT AT 91 ON 5 LITERS. PATIENT ON IV LASIX AND AMBULATES TO BATHROOM, HOWEVER O2 SAT DESATS TO
[2019-07-12 04:23] VITALS: BP 105/74
--- NOTE | 2019-07-12 04:58 | NUR ---
A/O X 4.DENIES PAIN.O2 5L NC.SPO2 GREATER THAN 91%.MONITOR SHOWS SINUS JAKE. DENIES NEEDS AT THIS TIME.POC CONTINUED.
[2019-07-12 04:59] LABS: HEMATOCRIT 44.3 % (42.0-52.0); HEMOGLOBIN 14.4 gm/dL (14.0-18.0); MCH 30.6 pg (26.0-34.0); MCHC 32.6 g/dL (28.0-37.0); RBC 4.71 mil/uL (4.50-6.00); RDW 13.1 % (10.5-14.5)
[2019-07-12 05:25] LABS: CREATININE 0.9 mg/dL (0.7-1.3)
[2019-07-12 07:39] VITALS: BP 104/73
[2019-07-12] MEDS ORDERED: PREDNISONE 10 M10 M1 PO (13:43)
[2019-07-12 14:59] VITALS: BP 117/73
[2019-07-12 15:04] VITALS: BP 117/73
--- NOTE | 2019-07-12 16:52 | NUR ---
ASSUMED CARE OF PATIENT AT 0700. ASSESSMENTS CHARTED. PATIENT ON CONTINUOUS PULSE OX. PATIENT AMBULATING IN THE ROOM IN PREPARATION OF GOING HOME. IV AND TELE REMOVED. DISCHARGE PAPERWORK SIGNED AT 1515 AND PATIENT TAKEN VIA WHEELCHAIR TO THE ER ENTRANCE TO BE DRIVEN HOME BY HIS . PATIENT STATES THAT HE IS FEELING BETTER THAN HE WAS WHEN HE ARRIVED.
== END 2019-07-12 15:25 | disposition home or self-care (01) | DRG 189 ==
LOC: ER 12:13 → 2N 14:03 → EROBS 14:03 → 2N 15:01
PROVIDERS: Emergency Medicine; Hospitalist; ADMIT Internal Medicine
DX: J96.21 Acute and chronic respiratory failure with hypoxia (principal); J44.1 Chronic obstructive pulmonary disease with (acute) exacerbation; R04.2 Hemoptysis; J96.22 Acute and chronic respiratory failure with hypercapnia; I27.20 Pulmonary hypertension, unspecified; F32.9 Major depressive disorder, single episode, unspecified; E78.5 Hyperlipidemia, unspecified; I10 Essential (primary) hypertension; Z87.891 Personal history of nicotine dependence; Z98.52 Vasectomy status; Z86.711 Personal history of pulmonary embolism; Z79.01 Long term (current) use of anticoagulants; Z79.899 Other long term (current) drug therapy; Z79.891 Long term (current) use of opiate analgesic; Z90.49 Acquired absence of other specified parts of digestive tract
CPT/HCPCS: 10081

== ENCOUNTER 2019-08-09 18:24 | Inpatient (IN) | payer OTHER ==
[~2019-08-09] VITALS: Ht 167.6 cm; Wt 85.2 kg
[~2019-08-09 18:24] MED LIST changes: +AZITHROMYCIN500 MG PO; +PREDNISONE 10 M10 M1 PO
[2019-08-09 18:25] VITALS: BP 114/77
[2019-08-09 18:39] LABS: HEMATOCRIT 44.4 % (42.0-52.0); HEMOGLOBIN 14.5 gm/dL (14.0-18.0); MCH 30.7 pg (26.0-34.0); MCHC 32.8 g/dL (28.0-37.0); MCV 93.8 fL (80.0-100.0); RBC 4.73 mil/uL (4.50-6.00); RDW 14.1 % (10.5-14.5)
[2019-08-09 18:47] LABS: BE(vivo) 2.9 mmol/L (-2 to +3); HCO3 28.6 mmol/L (22.0-26.0); PCO2 47.6 mmHg (35.0-45.0); PO2 62.8 mmHg (80.0-100.0); pH 7.396 (7.360-7.450); sO2 91.8 % (92.0-98.0)
[2019-08-09 18:48] LABS: ANION GAP 6 mmol/L (7-16); BUN 15 mg/dL (7-18); CALCIUM 10.2 mg/dL (8.5-10.1); CHLORIDE 104 mmol/L (98-107); CO2 33 mmol/L (21-32); CREATININE 0.9 mg/dL (0.7-1.3); GLUCOSE 109 mg/dL (74-106); SODIUM 143 mmol/L (136-145)
[2019-08-09 18:56] LABS: TROPONIN-I <0.06 ng/mL (<0.06)
[2019-08-09 20:35] LABS: APTT 33.2 Seconds (24.5-32.8); INR 1.3; PROTIME 13.7 Seconds (9.3-11.4)
[2019-08-09 20:43] VITALS: BP 114/77
[2019-08-09 21:16] VITALS: BP 114/77
[2019-08-09 21:24] VITALS: BP 113/72
--- NOTE | 2019-08-09 23:12 | NUR ---
Patient arrived to around 2200. He was oriented to his room, consents were signed, and admission documentation was completed. Patient was observed having an unsteady gait: for this reason he is being considered a fall risk. Nursing will continue to monitor. Bed alarm is on. Fall precautions in place.
[2019-08-09 23:35] VITALS: BP 101/70
[2019-08-10 03:49] VITALS: BP 102/61
--- NOTE | 2019-08-10 04:25 | NUR ---
Prior to administering patient's 0018 azithromycin, an alert appeared on [employer] advising that azithromycin and citalopram can have the major interacton of QT prolongation. Citalopram is a routine med of the patient's. Per Pharm[facility], this should not be an issue due to the short duration of azithromycin therapy.
[2019-08-10 05:34] LABS: HEMATOCRIT 42.4 % (42.0-52.0); HEMOGLOBIN 13.7 gm/dL (14.0-18.0); MCH 30.5 pg (26.0-34.0); MCHC 32.4 g/dL (28.0-37.0); MCV 94.1 fL (80.0-100.0); RBC 4.5 mil/uL (4.50-6.00); RDW 14.1 % (10.5-14.5); WBC 8.4 thou/uL (4.0-11.0)
[2019-08-10 05:48] LABS: CALCIUM 8.9 mg/dL (8.5-10.1); CREATININE 0.7 mg/dL (0.7-1.3); MAGNESIUM 1.9 mg/dL (1.8-2.4); POTASSIUM 3.9 mmol/L (3.5-5.1)
[2019-08-10 07:04] VITALS: BP 93/63
[2019-08-10 09:33] VITALS: BP 97/64
[2019-08-10 15:48] VITALS: BP 112/76
--- NOTE | 2019-08-10 15:56 | NUR ---
A/O, calm and cooperative; vss, afebrile; denied pain, no n/v. On 4 L O2. Patient claimed he had not sputum, felt clear in the lungs.
--- NOTE | 2019-08-10 16:21 | EKG ---
[address] [address] ELECTROCARDIOGRAM REPORT Name: MALIKA BENZ Room #: 349-I ADM IN M.R.#: [id number] Admission: 08/09/19 Attend Phys: Bryan Galvan MD Discharge: Date of : 59 Report #: [id number] THIS REPORT FOR: //name// [facility] ED Test Date: 2019-08-09 Test Time: 18:34:39 Pat Name: MALIKA BENZ Department: Room: 349 Gender: M Deck Supervisor: MARION : 1955 Requested By: Sanchez Ogden Order Number: [id number] MD: Rodolfo Eagle Measurements Intervals [place] Rate: 91 P: 71 [place]: 148 QRS: 52 QRSD: 98 T: 52 QT: 338 QTc: 416 Interpretive Statements Sinus arrhythmia Poor R-wave progression Baseline wander Compared to ECG 07/04/2019 12:30:42 No significant change Electronically Signed On 08-10-2019 16:20:47 HEALTHCARE ECONOMICS MANAGER by Rodolfo Eagle [email or web address] <ELECTRONICALLY SIGNED> By: Rodolfo Eagle MD 08/10/19 [phone] Rodolfo Eagle MD /EPI
[2019-08-10 19:19] VITALS: BP 94/59
[2019-08-11 03:08] VITALS: BP 107/78
--- NOTE | 2019-08-11 03:33 | NUR ---
ASSUMED CARE OF PT AT 1900HRS. PT IS AOX4 AND LETS NEEDS BE KNOWN. PT HAS A STEADY GAIT AND IS UP AD MADISON. O2 VIA NC CONTINUED AT 4L AT HOME. BLOOD CULTURE WAS POSITIVE FOR G+ COCCI. ABX TREATMENT CONTINUED. CT DONE AND SPUTUM CPLLECTED. PT DENIED PAIN, NAUSEA OR DISCOMFORT. PT WAS ABLE TO GET COMFORTABLE AND SLEEP PART OF THE SHIFT. VSS AND NO S/S OF ACUTE DISTRESS. WILL CONTINUE TO MONITOR.
[2019-08-11 05:34] LABS: HEMOGLOBIN 13.2 gm/dL (14.0-18.0); MCH 30.2 pg (26.0-34.0); MCHC 32.1 g/dL (28.0-37.0); MCV 94.1 fL (80.0-100.0); RBC 4.36 mil/uL (4.50-6.00); RDW 13.9 % (10.5-14.5); WBC 15.8 thou/uL (4.0-11.0)
[2019-08-11 05:42] LABS: CALCIUM 9.1 mg/dL (8.5-10.1); CREATININE 0.8 mg/dL (0.7-1.3); POTASSIUM 3.9 mmol/L (3.5-5.1)
[2019-08-11 07:38] VITALS: BP 94/65
[2019-08-11 15:21] VITALS: BP 104/70
--- NOTE | 2019-08-11 15:29 | NUR ---
INITIAL ASSESSMENT: SW reviewed chart and spoke with nursing and attending physician. Pt was admitted from home due to exacerbation of COPD. Xarelto is being held for possible bronchoscopy tomorrow. SW met with pt at bedside. Introduced role of SW. Pt is alert/orientated x 4. Pt reports he lives at home with his . Prior to admission, pt was independent with ADLs. No use of DME. No hx of HH or post-acute placement. Pt has 14 steps to get from the first level to the second level of their home. Pt states that he only has to go upstairs maybe once per day. Pt states he is normally on home O2 (4L via NC) per [place]. Pt's PCP is Dr. Kena Dalton. Plan is for pt to discharge home when medically stable. SW is following to assist as needed with discharge planning.
--- NOTE | 2019-08-11 17:07 | NUR ---
assumed care of pt at 0700. pt aox4 in no acute distress. occasional wheezes on 4l nc. up ad cristiano w/ steady gait. vitals stable, soft bp. calls out appropriately. afebrile. sinus on telemetry. pt progressing toward poc goals.
[2019-08-11 19:23] VITALS: BP 101/64
[2019-08-12 03:17] VITALS: BP 105/72
[2019-08-12 06:25] LABS: HEMATOCRIT 39.6 % (42.0-52.0); HEMOGLOBIN 12.6 gm/dL (14.0-18.0); MCHC 31.8 g/dL (28.0-37.0); MCV 94.5 fL (80.0-100.0); RBC 4.19 mil/uL (4.50-6.00); RDW 13.8 % (10.5-14.5); WBC 18.2 thou/uL (4.0-11.0)
--- NOTE | 2019-08-12 06:30 | NUR ---
Pt. slept fair during the night.O2 at 4L/NC. Shortness of breath with minimal exertion. No hemoptysis. Up ad cristiano in room with steady gait. Making progress towards care plan goals.
[2019-08-12 07:06] VITALS: BP 105/73
--- NOTE | 2019-08-12 13:51 | NUR ---
SW reviewed chart and spoke with nursing. Pt will not need a bronchoscopy prior to discharge. Discharge home is anticipated for tomorrow. SW met with pt at bedside to discuss discharge plan. Pt is aware and in agreement with plan for discharge home. Pt had questions regarding disharge medications. Pt states that he is normally on Azithromycin 3x/week as maintenance and would like to know if he should resume that schedule. SW notified attending physician of pt's question. Pt has home O2 in place at home through [facility]. Pt's family will be able to provide transportation home. No SW needs identified at this time, but is available to assist should needs arise.
[2019-08-12 14:57] VITALS: BP 113/78
--- NOTE | 2019-08-12 17:43 | NUR ---
ASSUMED PATIENT CARE AT 0700. A/O X4. ON 4L/NC. SOB WITH EXERTION. DENIES PAIN. SLOWLY TOWARDS POC GOALS.
[2019-08-12 19:25] VITALS: BP 104/68
[2019-08-13 03:40] VITALS: BP 108/78
--- NOTE | 2019-08-13 05:59 | NUR ---
Pt. stated he slept fair last night. Maintaining O2 sat in the mid to upper 90's. Shortness of breath with exertion. Up ad cristiano in room with steady gait. Progressing towards care plan goals.
[2019-08-13 06:01] LABS: HEMATOCRIT 40.5 % (42.0-52.0); HEMOGLOBIN 13.1 gm/dL (14.0-18.0)
[2019-08-13 07:47] VITALS: BP 106/74
[2019-08-13] MEDS ORDERED: CEFUROXIME250 MG PO (08:38)
[2019-08-13] MEDS ORDERED: PREDNISONE 10 M10 M1 PO (08:40)
[2019-08-13] MEDS ORDERED: AZITHROMYCIN500 MG PO (08:48)
[2019-08-13 10:28] VITALS: BP 106/74
--- NOTE | 2019-08-14 09:10 | PATH ---
[facility] [address] [place] [address] PATHOLOGY RPT PROCEDURE Name: MALIKA BENZ Room #: 349-I DIS IN M.R.#: [id number] Admission: 08/09/19 Date of : 59 Discharge: 08/13/19 Report #: [id number] Path Case #: [id number] Note LCA Accession Number: [id number] TESTS RESULT FLAG UNITS REF RANGE LAB Clinician Provided Cytology Information No. of containers..01 Other (Miscellaneous) Source: SPUTUM DIAGNOSIS: 02 SPUTUM NEGATIVE FOR MALIGNANT CELLS. Signed out by: 02 Jose Olvera MD, Pathologist NPI- [id number] Performed by: 01 Darius Houser, Industry Analyst ([facility]) Gross description: 01 5ML, PASCALE ACEVES, 1 TP /LCS 08/11/2019 1623 Local FLAG LEGEND: L-Low Normal,H-High Normal,LL-Alert Low,HH-Alert High <-Panic Low,>-Panic High,A-Abnormal,AA-Critical Abnormal Performed at: [address] [place] [address] Winston De Jesus MD, [address] [address] Lani Sandhu MD, Specimen Comment: A courtesy copy of this report has been sent to [phone], [phone]- Specimen Comment: [phone], Specimen Comment: Report sent to ,DR BEARDEN / DR HERNANDEZ Specimen Comment: A duplicate report has been generated due to demographic updates. Performed at: [address], [place], [place] [id number] MD Winston De Jesus MD Phone: [phone]
== END 2019-08-13 13:24 | disposition home or self-care (01) | DRG 189 ==
LOC: ER 18:24 → 3W 20:29 → EROBS 20:29 → 3W 21:13
PROVIDERS: Emergency Medicine; Hospitalist; Internal Medicine Pulmonary Disease; Nurse Practitioner Acute Care; ADMIT Internal Medicine
DX: J96.21 Acute and chronic respiratory failure with hypoxia (principal); J98.11 Atelectasis; J44.1 Chronic obstructive pulmonary disease with (acute) exacerbation; I10 Essential (primary) hypertension; I27.20 Pulmonary hypertension, unspecified; F32.9 Major depressive disorder, single episode, unspecified; J96.22 Acute and chronic respiratory failure with hypercapnia; E66.9 Obesity, unspecified; E78.5 Hyperlipidemia, unspecified; Z68.30 Body mass index [BMI] 30.0-30.9, adult; Z98.52 Vasectomy status; Z79.899 Other long term (current) drug therapy; Z86.711 Personal history of pulmonary embolism; Z90.49 Acquired absence of other specified parts of digestive tract; Z79.01 Long term (current) use of anticoagulants; Z87.891 Personal history of nicotine dependence; Z99.81 Dependence on supplemental oxygen
CPT/HCPCS: 10879

== ENCOUNTER 2019-09-17 11:15 | Inpatient (IN) | payer OTHER ==
[~2019-09-17] VITALS: Ht 167.6 cm; Wt 95.3 kg
[2019-09-17 11:16] VITALS: BP 109/71
[2019-09-17 11:59] LABS: HEMATOCRIT 44.7 % (42.0-52.0); HEMOGLOBIN 14.1 gm/dL (14.0-18.0); MCH 29.6 pg (26.0-34.0); MCHC 31.5 g/dL (28.0-37.0); MCV 93.8 fL (80.0-100.0); RBC 4.76 mil/uL (4.50-6.00); RDW 14.2 % (10.5-14.5)
[2019-09-17 12:06] LABS: ANION GAP 7 mmol/L (7-16); BUN 18 mg/dL (7-18); CALCIUM 9.5 mg/dL (8.5-10.1); CHLORIDE 102 mmol/L (98-107); CO2 33 mmol/L (21-32); CREATININE 0.9 mg/dL (0.7-1.3); GLUCOSE 140 mg/dL (74-106); POTASSIUM 3.8 mmol/L (3.5-5.1); SODIUM 142 mmol/L (136-145)
[2019-09-17 12:10] LABS: BE(vivo) 2.5 mmol/L (-2 to +3); HCO3 28.5 mmol/L (22.0-26.0); PCO2 48.8 mmHg (35.0-45.0); PO2 57.3 mmHg (80.0-100.0); pH 7.384 (7.360-7.450); sO2 89.1 % (92.0-98.0)
[2019-09-17 12:15] LABS: TROPONIN-I <0.06 ng/mL (<0.06)
[2019-09-17 15:54] VITALS: BP 109/74
[2019-09-17 17:28] VITALS: BP 112/74
[2019-09-17 17:42] VITALS: BP 112/74
[2019-09-17 17:54] VITALS: BP 118/63
--- NOTE | 2019-09-17 18:46 | NUR ---
1800 PT ADMITED ON 3W IN ROOM 363. PT CAME FROM FROM ER VIA BED. PT ALERT AND ORIENTED. PT STATES FEELING SOA WITH ACTIVITY ON 5L ON OXYGEN. COMPLAINS OF PAIN 2/10 LEFT LUNG AREA.PT ON COURTNEY, SINUS RYTHM DENIES ANY COUGH. PT ORIENTED TO ROOM. ASSESSMENT, AMISSION AND VITALS COMPLETED. fALL RISK AN CONSENT PAPERS SIGNED. CALL LIGHT IN REACH. BED AT LOWEST LEVEL WITH ALARM ON. DENIES ANY OHER NEEDS AT THE MOMENT.
[2019-09-17 19:51] VITALS: BP 96/60
[2019-09-18 00:40] VITALS: BP 101/62
--- NOTE | 2019-09-18 03:33 | NUR ---
Patient making some progress towards outcome goals. Vital signs and rhythm stable. Poor oral intake, urine output tea colored. Oxygenation optimal with 5L/NC maintaining adequate saturation. Low fall risks, gait steady, uses call light appropriately for needs.
[2019-09-18 05:04] VITALS: BP 107/67
[2019-09-18 06:05] LABS: HEMATOCRIT 39.9 % (42.0-52.0); MCH 30.2 pg (26.0-34.0); MCHC 32.6 g/dL (28.0-37.0); MCV 92.6 fL (80.0-100.0); RBC 4.31 mil/uL (4.50-6.00); WBC 10.4 thou/uL (4.0-11.0)
[2019-09-18 06:23] LABS: CALCIUM 9.2 mg/dL (8.5-10.1); CREATININE 0.8 mg/dL (0.7-1.3); POTASSIUM 3.9 mmol/L (3.5-5.1)
[2019-09-18 07:54] VITALS: BP 130/70
[2019-09-18 15:48] VITALS: BP 99/62
--- NOTE | 2019-09-18 16:10 | NUR ---
ASSUMED CARE 0700. ALERT X4, DENIES CHEST PAIN, SOB WITH ACTIVITY THAT REQUIRES INCREASING O2. ONCE PATIENT IS BACK TO RESTING POSITION O2 IS TITRATED BACK TO 4L. BS MANAGED WITH INSULIN, COMPLIANT WITH CARES. CONTINENT WITH URINAL. NO BM NOTED AT THIS TIME. CALLS FOR ASSISTANCE. FALL PRECAUTION IN PLACE.
[2019-09-18 20:25] VITALS: BP 95/71
[2019-09-19 05:00] VITALS: BP 111/64
--- NOTE | 2019-09-19 06:31 | NUR ---
Received pt. on 5L/NC with O2 sat in the low to mid 90's. Shortness of breath with exertion. Voiding per urinal. Afebrile. Will continue to monitor.
[2019-09-19 07:19] VITALS: BP 106/75
--- NOTE | 2019-09-19 08:27 | NUR ---
PT ALERT AND ORINTED X4. DENIES ANY PAIN. AESSESSMENT COMPLETED. PT ON 4L OF OXYGEN, REGULAR BREATHING,DSYPNEA WITH EXERTION.PT DENIES ANY NEEDS AT THE MOMENT. CALL LIGHT IN REACH WITH BED AT LOWEST LEVEL. BED ALARM ON. PT PROGRESSING TOWARDS CARE. WILL CONTINUE TO MONITOR.
[2019-09-19 15:28] VITALS: BP 102/64
--- NOTE | 2019-09-19 16:37 | NUR ---
Report given to 4S nurse. Pt belongings packed and sent with pt.
--- NOTE | 2019-09-19 16:38 | NUR ---
INITIAL ASSESSMENT: SW reviewed chart and spoke with nursing and attending physician. Pt was admitted from home due to pneumonia. Pt with hx of COPD. Pt is currently on IV steroids/IV abx. SW met with pt at bedside. Introduced role of SW. Pt is alert/orientated x 4. Pt reports he lives at home. Prior to admission, pt was independent with ADLs. Pt has home O2 in place through [facility]. Pt is normally on 4L at rest and 6-7L with activity. Pt's home concentrator goes up to 10L. No hx of HH services or post-acute placement. Pt's PCP is Dr. Kena Dalton. Pt's director of quality control is Dr. Jose Angel Snow. Pt may d/c home over the weekend. Pt will have transportation home when discharged. No SW needs identified at this time, but is available to assist should needs arise.
[2019-09-19 20:38] VITALS: BP 108/68
--- NOTE | 2019-09-20 03:25 | NUR ---
ASSUMED CARE FROM DAY SHIFT PT SITTING ON SIDE OF BED . DENIES SOA OR PAIN , IV ABX STARTED AND TOLERATIG WELL. DISCUSSED PLAN OF CARE AND PT VERBALIZED UNDERSTANDING AND AGREEABLE. PT RESTED WELL THROUGHOUT HOURLY ROUNDS, WILL REPORT CHANGES OR ABNORMAL FINDINGS.
[2019-09-20 04:46] VITALS: BP 113/74
[2019-09-20 06:28] LABS: HEMATOCRIT 38.3 % (42.0-52.0); HEMOGLOBIN 12.4 gm/dL (14.0-18.0); MCH 30.2 pg (26.0-34.0); MCHC 32.5 g/dL (28.0-37.0); MCV 92.9 fL (80.0-100.0); RBC 4.12 mil/uL (4.50-6.00); RDW 14.3 % (10.5-14.5)
[2019-09-20 06:39] LABS: CALCIUM 8.8 mg/dL (8.5-10.1); CREATININE 0.8 mg/dL (0.7-1.3); POTASSIUM 4.4 mmol/L (3.5-5.1)
[2019-09-20 10:10] VITALS: BP 100/74
--- NOTE | 2019-09-20 15:02 | NUR ---
PT is A&OX3, PT is continuing IV abx and o2 4L/MIN/NC, PT has SOB with activities, pt's vs are stable, pt denies pain and n/v at this time.
[2019-09-20 16:27] VITALS: BP 107/66
[2019-09-20 21:30] VITALS: BP 105/60
--- NOTE | 2019-09-21 04:15 | NUR ---
ASSUMED PT CARE AT 1900. PT A&OX4. REQUIRED NO INSULING THIS EVENING. ANTIBIOTICS BEING GIVEN PER ORDERS. REPORTS NO PAIN, JUST SOB WITH EXERTION. SMALL COUGH, LUNGS SOUND CLEAR AND DIMINISHED. IN AND OUT OF SLEEP ALL NIGHT. WILL CONTINUE TO MONITOR AND FOLLOW POC.
[2019-09-21 04:20] VITALS: BP 125/81
[2019-09-21 09:07] VITALS: BP 111/76
--- NOTE | 2019-09-21 12:01 | NUR ---
ASSUMED CARE OF THE PT AT 0700. PT IS INDEPENDENT AND IS NOT A FALL RISK. PT IS ON 4.0 L O2 NASAL CANNULA AND CAN INCREASE WITH ACTIVITTY UP TO 6L. L AC IV AND L WRIST IV DRY AND INTACT. NO C/O PAIN. PT REFUSES SCD'S. PER DOCTOR ANOTHER SPUTUM CULTURE IS NEEDED, PT ADVISED. BS CONTROLLED WITH INSULIN. CALL LIGHT IS WITHIN REACH. WILL CONTINUE TO MONITOR THE PT.
[2019-09-21 18:43] VITALS: BP 118/62
[2019-09-21 19:21] VITALS: BP 105/63
--- NOTE | 2019-09-22 02:00 | NUR ---
ASSESSMENT COMPLETED. PT ALERT AND ORIENTED,. HE IS UP AD MADISON, MOSTLY JUST TO THE BEDSIDE TO USE URINAL. PT REPORTS HE QUICKLY DESATS WITH MUCH ACTIVITY. CONTINUES ON THE VEST TREAMENTS AND MUCOLYTICS. PT IS ON 09/16L/NC BASELINE LEVEL AT HOME.HE DOES NOT APPEAR TO BE IN DISTRESS.LS REMAIN DIMINISHED. NO EDEMA. DENIES PAIN.CONTINUES ON IV ABTS AND STEROIDS. WILL CONTINUE WITH POC.
[2019-09-22 04:13] VITALS: BP 115/81
[2019-09-22 05:11] LABS: HEMATOCRIT 42.5 % (42.0-52.0); HEMOGLOBIN 13.7 gm/dL (14.0-18.0); MCHC 32.2 g/dL (28.0-37.0); MCV 93.2 fL (80.0-100.0); RBC 4.55 mil/uL (4.50-6.00); WBC 14.6 thou/uL (4.0-11.0)
[2019-09-22 05:31] LABS: CALCIUM 8.5 mg/dL (8.5-10.1); CREATININE 0.9 mg/dL (0.7-1.3); POTASSIUM 4.1 mmol/L (3.5-5.1)
--- NOTE | 2019-09-22 12:06 | NUR ---
ASSUMED CARE OF THE PT AT 0700. PT NC O2 INCREASES UP TO 6.0L WITH ACTIVITY. NO C/O PAIN. BS CONTROLLED BY INSULIN, SEE EMAR. PT CONTINUES TO COUGH UP SPUTUM, BROWNISH/ RED. L WRIST IV DRY AND INTACT, L AC IV DRY AND INTACT, USED FOR ANTIBIOTICS. PT IS NOT A FALL RISK, BED IN LOWEST POSITION AND CALL LIGHT IS WITHIN REACH. WILL CONTINUE TO MONITOR THE PT.
[2019-09-22 17:02] VITALS: BP 115/68
[2019-09-22 20:10] VITALS: BP 122/74
--- NOTE | 2019-09-23 02:23 | NUR ---
ASSESSMENT COMPLETED. PT DENIES ANY CONCERN, CONTINUOUS OXYGEN PER NASAL CANNULA, GETS SOA WITH ACTIVITY. DENIES PAIN.A LITTLE BIT OF A LOOSE COUGH. SLOWLY PROGRESSIING TOWARDS CARE GOALS.
[2019-09-23 03:30] VITALS: BP 117/74
[2019-09-23 08:10] VITALS: BP 102/66
--- NOTE | 2019-09-23 10:16 | NUR ---
FOR ASSISTANCE WITH DC PLAN CALL TAYLOR Scanlon , EXT [phone] M-F. IF HH SERVICES NEEDED OR OTHER NEEDS CALL [facility] TO STAFF .
[2019-09-23 12:00] VITALS: BP 102/66
[2019-09-23 14:50] VITALS: BP 118/84
--- NOTE | 2019-09-23 15:47 | NUR ---
I have reviewed and concur with student documentation.
[2019-09-23] MEDS ORDERED: MUCINEX600 MG PO (17:19)
[2019-09-23] MEDS ORDERED: AUGMENTIN 875-1 EACH PO (17:21)
[2019-09-23] MEDS ORDERED: PREDNISONE 10 M10 MG PO (17:24)
[2019-09-23 20:15] VITALS: BP 118/84
--- NOTE | 2019-09-23 20:48 | NUR ---
PT AMBULATED HALLS SEVERAL TIMES THIS SHIFT. NEEDS TO BREAK A FEW TIMES TO AMBULATE ENTIRE UNIT. PT AMBULATES ON 6L NC, DEST TO 90% WHEN IN NEED OF A BREAK. ABLE TO RECOVER BACK TO 93% AFTER RESTING FOR A COUPLE MINUTES. PT DISCHARGED HOME THIS SHIFT. RECEIVED DC INSTRUCTIONS, PT AWARE THAT PRESCRIPTIONS WERE SENT TO PHARMACY. VERBALIZES ACCURATE UNDERSTANDING OF EDUCATION. TRANSPORTED BY UNIT STAFF TO PRIVATE VEHICLE VIA WHEELCHAIR W/ O2 IN USE.
--- NOTE | 2019-09-24 12:32 | EKG ---
[facility] [place] [address] ELECTROCARDIOGRAM REPORT Name: MALIKA BENZ Room #: 438-P [facility] IN M.R.#: [id number] Admission: 09/17/19 Attend Phys: Karthikeyan Pineda MD Discharge: 09/23/19 Date of : 59 Report #: [id number] THIS REPORT FOR: cc: Kena Dalton MD, Jennifer S. MD Lundgren,Bryce Barnard MD [facility] THIS REPORT FOR: //name// [facility] ED Test Date: 2019-09-17 Test Time: 11:31:18 Pat Name: MALIKA BENZ Department: Room: [facility] Gender: M Size Mixer: MARION : 1955 Requested By: Sanchez Ogden Order Number: [id number] MD: Bryce Winter Measurements Intervals [place] Rate: 86 P: 72 RI: 147 QRS: 78 QRSD: 87 T: 66 QT: 364 QTc: 436 Interpretive Statements Sinus rhythm Anteroseptal infarct, age indeterminate Nonspecific ST segment abnormality Compared to ECG 08/09/2019 18:34:39 No significant change was found Electronically Signed On 09-17-2019 16:23:50 STAFF SOFTWARE ENGINEER by Bryce Winter [email or web address] <ELECTRONICALLY SIGNED> By: Bryce Winter MD, FAC 09/17/19 1623 1131 1131 Bryce Winter MD, [facility] /EPI
--- NOTE | 2019-09-24 13:36 | NUR ---
NOTIFIED TAYLOR Scanlon FROM [facility] THAT PT D;CD HOME YESTERDAY WITH NO DC NEEDS, , EXT [phone].
== END 2019-09-23 20:51 | disposition home or self-care (01) | DRG 871 ==
LOC: ER 11:15 → 3W 13:32 → EROBS 13:32 → 3W 17:43 → 4S 09-19 16:30
PROVIDERS: Emergency Medicine; Internal Medicine; ADMIT Hospitalist
DX: A41.9 Sepsis, unspecified organism (principal); J18.9 Pneumonia, unspecified organism; J96.22 Acute and chronic respiratory failure with hypercapnia; J96.21 Acute and chronic respiratory failure with hypoxia; J44.1 Chronic obstructive pulmonary disease with (acute) exacerbation; J44.0 Chronic obstructive pulmonary disease with (acute) lower respiratory infection; E78.5 Hyperlipidemia, unspecified; F17.210 Nicotine dependence, cigarettes, uncomplicated; I27.20 Pulmonary hypertension, unspecified; F32.9 Major depressive disorder, single episode, unspecified; Z99.81 Dependence on supplemental oxygen; Z86.711 Personal history of pulmonary embolism; Z79.01 Long term (current) use of anticoagulants; Z90.89 Acquired absence of other organs; Z98.52 Vasectomy status; Z98.818 Other dental procedure status; Z79.2 Long term (current) use of antibiotics; Z79.891 Long term (current) use of opiate analgesic; Z79.899 Other long term (current) drug therapy
CPT/HCPCS: 10102; 10879

== ENCOUNTER → 2019-10-22 | Outpatient (CLI) | payer OTHER ==
[~2019-10-22] VITALS: Ht 172.7 cm; Wt 86.2 kg
[~2019-10-22] MED LIST changes: +AUGMENTIN 875-1 EACH PO; +CELEXA 20 MG TA20 MG PO; +FISH OIL 1,0001 EAC9 PO; +MUCUS RELIEF1200 MG PO
[2019-10-22 07:39] LABS: CALCIUM 9.4 mg/dL (8.5-10.1); CREATININE 0.8 mg/dL (0.7-1.3); POTASSIUM 3.6 mmol/L (3.5-5.1)
[2019-10-22 12:15] VITALS: BP 109/62
--- NOTE | 2019-10-23 15:08 | PATH ---
[facility] [address] [place] [address] PATHOLOGY RPT PROCEDURE Name: MALIKA BENZ Room #: REG CLJaylon Del Toro.#: [id number] Admission: 10/22/19 Date of : 59 Discharge: Report #: [id number] Path Case #: [id number] Note LCA Accession Number: [id number] TESTS RESULT FLAG UNITS REF RANGE LAB Clinician Provided Cytology Information No. of containers..01 Other (Miscellaneous) Source: LLL BRUSH TIP DIAGNOSIS: LLL BRUSH TIP NEGATIVE FOR MALIGNANT CELLS. REACTIVE BRONCHIAL CELLS ARE PRESENT. CELLULAR DEGENERATION IS PRESENT. PULMONARY MACROPHAGES (DUST CELLS) ARE PRESENT. BLOOD OBSCURING AND LIMITING INTERPRETATION. Pathologist ICD10: 02 R91.8 Signed out by: Lani Sandhu MD, Pathologist NPI- [id number] Performed by: Aihsa Leal, Blender Operator ([facility]) Gross description: 1 TP /LCS 10/22/2019 1835 Local FLAG LEGEND: L-Low Normal,H-High Normal,LL-Alert Low,HH-Alert High <-Panic Low,>-Panic High,A-Abnormal,AA-Critical Abnormal Performed at: [address] [place] [address] Winston De Jesus MD, [address] [address] Lani Sandhu MD, Performed at: [address], [place], [place] [id number] MD Winston De Jesus MD Phone: [phone]
--- NOTE | 2019-10-23 15:08 | PATH ---
[facility] [address] [place] [address] PATHOLOGY RPT PROCEDURE Name: MALIKA BENZ Room #: REG CLJaylon Del Toro.#: [id number] Admission: 10/22/19 Date of : 59 Discharge: Report #: [id number] Path Case #: [id number] Note LCA Accession Number: [id number] TESTS RESULT FLAG UNITS REF RANGE LAB Clinician Provided Cytology Information No. of containers..01 Other (Miscellaneous) Source: BRONCH WASH LLL DIAGNOSIS: BRONCH WASH LLL NEGATIVE FOR MALIGNANT CELLS. REACTIVE BRONCHIAL CELLS ARE PRESENT. CELLULAR DEGENERATION IS PRESENT. PULMONARY MACROPHAGES (DUST CELLS) ARE PRESENT. Pathologist ICD10: 02 R91.8 Signed out by: 02 Lani Sandhu MD, Pathologist NPI- [id number] Performed by: 01 Reema Leal, Field Marketing Director ([facility]) Gross description: 01 15ML, RED, 1 TP /LCS 10/22/2019 1831 Local FLAG LEGEND: L-Low Normal,H-High Normal,LL-Alert Low,HH-Alert High <-Panic Low,>-Panic High,A-Abnormal,AA-Critical Abnormal Performed at: [address] [place] [address] Winston De Jesus MD, [address] [address] Lani Sandhu MD, Performed at: [address], [place], [place] [id number] MD Winston De Jesus MD Phone: [phone]
--- NOTE | 2019-10-23 15:08 | PATH ---
[facility] [address] [place] [address] PATHOLOGY RPT PROCEDURE Name: MALIKA BENZ Room #: REG EBENEZER Del Toro.#: [id number] Admission: 10/22/19 Date of : 59 Discharge: Report #: [id number] Path Case #: [id number] Note LCA Accession Number: [id number] TESTS RESULT FLAG UNITS REF RANGE LAB Clinician Provided Cytology Information No. of containers..01 Slide Source: LLL BRUSHINGS DIAGNOSIS: 02 LLL BRUSHINGS NEGATIVE FOR MALIGNANT CELLS. REACTIVE BRONCHIAL CELLS ARE PRESENT. PULMONARY MACROPHAGES (DUST CELLS) ARE PRESENT. Pathologist ICD10: 02 R91.8 Signed out by: Lani Sandhu MD, Pathologist NPI- [id number] Performed by: Reema Leal, Grease Press Helper ([facility]) Gross description: 3 FX /LCS 10/22/2019 1833 Local FLAG LEGEND: L-Low Normal,H-High Normal,LL-Alert Low,HH-Alert High <-Panic Low,>-Panic High,A-Abnormal,AA-Critical Abnormal Performed at: [address] [place] [address] Winston De Jesus MD, [address] [address] Lani Sandhu MD, Performed at: [address], [place], [place] [id number] MD Winston De Jesus MD Phone: [phone]
== END | disposition home or self-care (01) ==
LOC: PUL 06:52
PROVIDERS: Pediatrics
DX: J98.11 Atelectasis (principal); R91.8 Other nonspecific abnormal finding of lung field; J96.90 Respiratory failure, unspecified, unspecified whether with hypoxia or hypercapnia; J44.9 Chronic obstructive pulmonary disease, unspecified; F32.9 Major depressive disorder, single episode, unspecified; F41.9 Anxiety disorder, unspecified; E78.00 Pure hypercholesterolemia, unspecified; Z87.01 Personal history of pneumonia (recurrent); Z90.49 Acquired absence of other specified parts of digestive tract; Z98.890 Other specified postprocedural states; Z87.891 Personal history of nicotine dependence; Z86.711 Personal history of pulmonary embolism; Z79.01 Long term (current) use of anticoagulants; J20.9 Acute bronchitis, unspecified
CPT/HCPCS: 62110; 62900; 70005

== ENCOUNTER → 2020-01-14 | Outpatient (CLI) | payer OTHER | LOC: RAD 11:24 | DX: J44.0 Chronic obstructive pulmonary disease with (acute) lower respiratory infection (principal); J20.9 Acute bronchitis, unspecified ==

== ENCOUNTER → 2020-04-27 | Outpatient (CLI) | payer OTHER | LOC: SJCVCIMAG 11:53 | PROVIDERS: ATTEND Internal Medicine Cardiovascular Disease | DX: I07.1 Rheumatic tricuspid insufficiency (principal); I11.9 Hypertensive heart disease without heart failure; I27.20 Pulmonary hypertension, unspecified; J44.9 Chronic obstructive pulmonary disease, unspecified; I26.09 Other pulmonary embolism with acute cor pulmonale; F17.200 Nicotine dependence, unspecified, uncomplicated; J96.11 Chronic respiratory failure with hypoxia ==

== ENCOUNTER → 2020-09-01 | Outpatient (CLI) | payer OTHER | LOC: SJCVCIMAG 08:50 | PROVIDERS: ATTEND Internal Medicine Cardiovascular Disease | DX: I07.1 Rheumatic tricuspid insufficiency (principal); I10 Essential (primary) hypertension; E78.5 Hyperlipidemia, unspecified; I27.20 Pulmonary hypertension, unspecified ==

== ENCOUNTER 2021-04-04 16:48 | Inpatient (IN) | payer OTHER ==
[~2021-04-04] VITALS: Ht 152.4 cm; Wt 68.5 kg
--- NOTE | ~2021-04-04 | EMS ---
[address] [address] EMS Patient Care Report Name: MALIKA BENZ Room #: 204-P ADM IN M.R.#: [id number] Admission: 04/04/21 Attend Phys: Zach Muñoz MD Discharge: Date of : 59 Report #: [id number] THIS REPORT FOR: //name// Report Transmitted: 04/08/2021 10:14 EMS Care Summary [place], [place]/[facility] Incident [id number] @ 04/04/2021 16:13 Incident Location [address] [place] [address] Patient EUGENIO BENZ Male, 65 Years 1955 Patient Address [address] [place] [address] Patient History Chronic Obstructive Pulmonary Disease (COPD), Patient Allergies No known allergies, Patient Medications Unknown, Chief Complaint SOB Disposition Transported [place] Dispatch Reason Breathing Problem Transported To [facility] Narrative SCENE: ON ARRIVAL PT FOUND SITTING UPRIGHT IN CHAIR IN LIVING ROOM OF ADDRESS PROVIDED. PT IS AWAKE AND ALERT WITH A GCS OF 15. PT C/O SOB SINCE YESTERDAY AND REPORTS IT HAS GOTTEN INCREASINGLY WORSE. PT IS ON A NC AT 4LPM PER NORMAL. PT SPEAKING IN 2 AND 3 WORD SENTENCES. PT HAS ACCESSORY MUSCLE USAGE. PT [address] [address] EMS Patient Care Report Name: MALIKA BENZ Room #: 204-P [facility] IN .R.#: [id number] Admission: 04/04/21 Attend Phys: Zach Muñoz MD Discharge: Date of : 59 Report #: [id number] IMMEDIATELY PLACED ON CPAP. PT THEN PLACED ON STAIRCHAIR AND TRANSFERRED TO EMS STRETCHER. AMBULANCE: IV INITIATED AND 125 MG SOLU MEDROL ADMINISTERED. Initial Vitals @16:23P: 94,R: 12,Pain: 0/10,GCS: 15, Assessments @16:22MENTAL:No Abnormalities,SKIN:No Abnormalities,HEENT:Head/Face: No Abnormalities,Eyes: No Abnormalities,Neck/Airway: No Abnormalities,LUNG SOUNDS:General: No Abnormalities,Left Upper: No Abnormalities,Right Upper: No Abnormalities,Left Lower: No Abnormalities,Right Lower: No Abnormalities,ABDOMEN:General: No Abnormalities,Left Upper: No Abnormalities,Right Upper: No Abnormalities,Left Lower: No Abnormalities,Right Lower: No Abnormalities,PELVIS//GI:No Abnormalities,EXTREMITIES:Left Arm: No Abnormalities,Right Arm: No Abnormalities,Left Leg: No Abnormalities,Right Leg: No Abnormalities,PULSE:NEURO:No Abnormalities,@16:35MENTAL:No Abnormalities,SKIN:No Abnormalities,HEENT:Head/Face: No Abnormalities,Eyes: No Abnormalities,Neck/Airway: No Abnormalities,LUNG SOUNDS:General: No Abnormalities,Left Upper: No Abnormalities,Right Upper: No Abnormalities,Left Lower: No Abnormalities,Right Lower: No Abnormalities,ABDOMEN:General: No Abnormalities,Left Upper: No Abnormalities,Right Upper: No Abnormalities,Left Lower: No Abnormalities,Right Lower: No Abnormalities,PELVIS//GI:No Abnormalities,EXTREMITIES:Left Arm: No Abnormalities,Right Arm: No Abnormalities,Left Leg: No Abnormalities,Right Leg: No Abnormalities,PULSE:NEURO:No Abnormalities, Impression Acute Respiratory Distress (Dyspnea) Procedures @PTAOxygen FlowRate: 4 Device: Nasal Cannula (NC) Succeeded@16:23ALS AssessmentResponse: UnchangedSucceeded@16:26StretcherResponse: Unchanged@16:35Solu-Medrol - 125 Milligrams (mg) - Intravenous (IV)Response: Improved@16:25CPAP FlowRate: 10 Response: ImprovedSucceeded@16:31Saline Lock 10cc (18 ga) Site: Antecubital-LeftResponse: UnchangedSucceeded@16:25StairchairResponse: Unchanged Timeline BRACELET MAKER NOVELTY,Oxygen FlowRate: 4 Device: Nasal Cannula (NC) Succeeded, 16:11,Call Received 16:11,Dispatch Notified 16:13,Dispatched 16:14,En Route 16:20,On Scene [address] [address] EMS Patient Care Report Name: MALIKA BENZ Room #: 204-P ADM IN M.R.#: [id number] Admission: 04/04/21 Attend Phys: Zach Muñoz MD Discharge: Date of : 59 Report #: [id number] 16:22,At Patient 16:23,ALS Assessment,Response: UnchangedSucceeded, 16:23,BP: / M,PULSE: 94,RR: 12 R,SPO2: Ox,ETCO2: ,BG: ,PAIN: 0,GCS: 15, 16:25,CPAP FlowRate: 10 Response: ImprovedSucceeded, 16:25,Stairchair,Response: Unchanged 16:26,Stretcher,Response: Unchanged 16:31,Saline Lock 10cc 18 ga Site: Antecubital-Left,Response: UnchangedSucceeded, 16:31,Depart Scene 16:35,Solu-Medrol - 125 Milligrams (mg) - Intravenous (IV),Response: Improved 16:37,At Destination 16:55,Call Closed Disclaimer v1.1 Copyright 2020 [employer] This EMS Care Summary contains data elements from the applicable legal record (which may be displayed differently). It is designed to provide pertinent information for the following purposes: continuity of care, clinical quality, and state data reporting. The complete legal record is available to ED staff and administrators of the receiving hospital in [employer]'s Patient Tracker. All data is provided "as is."
[2021-04-04 16:48] VITALS: BP 126/81
[~2021-04-04 16:48] MED LIST changes: +CRESTOR20 MG PO; -PRAVACHOL40 MG PO
[2021-04-04 17:02] LABS: BE(vivo) 2.1 mmol/L (-2 to +3); HCO3 28.7 mmol/L (22.0-26.0); PCO2 51.9 mmHg (35.0-45.0); PO2 98.5 mmHg (80.0-100.0); pH 7.361 (7.360-7.450); sO2 97.2 % (92.0-98.0)
[2021-04-04 17:22] LABS: ABSOLUTE NEUTROPHILS 9.4 thou/uL (1.4-8.2); BASOPHILS 0.1 % (0.0-2.0); HEMATOCRIT 46.3 % (42.0-52.0); HEMOGLOBIN 15.4 gm/dL (14.0-18.0); LYMPHOCYTES 4.4 % (24.0-44.0); MCH 31.8 pg (26.0-34.0); MCHC 33.3 g/dL (28.0-37.0); MCV 95.7 fL (80.0-100.0); MONOCYTES 3.3 % (1.0-8.0); PLATELET COUNT 230 thou/uL (150-400); POLYS 92.2 % (36.0-66.0); RBC 4.84 mil/uL (4.50-6.00); RDW 13.1 % (10.5-14.5); WBC 10.2 thou/uL (4.0-11.0)
[2021-04-04 17:32] LABS: CREATININE 1.1 mg/dL (0.7-1.3); POTASSIUM 3.9 mmol/L (3.5-5.1)
[2021-04-05 05:43] LABS: HEMATOCRIT 41.6 % (42.0-52.0); HEMOGLOBIN 14.3 gm/dL (14.0-18.0); MCH 32.9 pg (26.0-34.0); MCHC 34.2 g/dL (28.0-37.0); MCV 96.1 fL (80.0-100.0); RBC 4.33 mil/uL (4.50-6.00); RDW 13.1 % (10.5-14.5); WBC 9.5 thou/uL (4.0-11.0)
[2021-04-05 05:53] LABS: CALCIUM 7.8 mg/dL (8.5-10.1); CREATININE 1.1 mg/dL (0.7-1.3); POTASSIUM 3.7 mmol/L (3.5-5.1)
--- NOTE | 2021-04-05 07:18 | EKG ---
[place] [address] [address] [facility] [place] [address] ELECTROCARDIOGRAM REPORT Name: MALIKA BENZ Room #: 170-15 ADM IN M.R.#: [id number] Admission: 04/04/21 Attend Phys: Zach Muñoz MD Discharge: Date of : 59 Report #: [id number] [facility] ED Test Date: 2021-04-04 Test Time: 17:00:52 Pat Name: MALIKA BENZ Department: Room: 170 Gender: M Industrial Editor: sebastián : 1955 Requested By: Alcides Stein Order Number: [id number] MD: Juan Samuel Measurements Intervals [place] Rate: 102 P: 89 DC: 136 QRS: 56 QRSD: 93 T: 33 QT: 355 QTc: 463 Interpretive Statements Sinus tachycardia Ventricular premature complex Low voltage, extremity leads Borderline ST depression, anterolateral leads Compared to ECG 09/17/2019 11:31:18 Ventricular premature complex(es) now present Low QRS voltage now present Sinus rhythm no longer present Myocardial infarct finding no longer present ST (T wave) deviation still present Electronically Signed On 04-05-2021 7:18:37 CDT by Juan Samuel [email or web address] <ELECTRONICALLY SIGNED> By: Juan Samuel MD, FAC 04/05/21 0718 99 99 Juan Samuel MD, [facility] /EPI
--- NOTE | 2021-04-05 07:18 | EKG ---
[address] [place] [address] ELECTROCARDIOGRAM REPORT Name: MALIKA BENZ Room #: 170-15 ADM IN M.R.#: [id number] Admission: 04/04/21 Attend Phys: Zach Muñoz MD Discharge: Date of : 59 Report #: [id number] [facility] ED Test Date: 2021-04-04 Test Time: 17:25:38 Pat Name: MALIKA BENZ Department: Room: 170 Gender: M Weight Checker: sebastián : 1955 Requested By: Alcides Stein Order Number: [id number] MD: Juan Samuel Measurements Intervals [place] Rate: 85 P: 74 FL: 144 QRS: 62 QRSD: 98 T: 70 QT: 371 QTc: 442 Interpretive Statements Sinus rhythm Low voltage, extremity leads Compared to ECG 04/04/2021 17:00:52 Sinus tachycardia no longer present Ventricular premature complex(es) no longer present ST (T wave) deviation no longer present Electronically Signed On 04-05-2021 7:18:40 CDT by Juan Samuel [email or web address] <ELECTRONICALLY SIGNED> By: Juan Samuel MD, [facility] 04/05/21 0718 1725 1725 Juan Samuel MD, [facility] /EPI
[2021-04-05 10:30] VITALS: BP 93/64
[2021-04-05 17:15] VITALS: BP 134/82
[2021-04-05] MEDS ORDERED: TORSEMIDE20 MG PO (17:23)
--- NOTE | 2021-04-05 18:08 | NUR ---
65 year old male presents to the ED on 04-04-21 with a history of COPD and worsening SOA. Patient was in respiratory distress upon admission and immediately placed on Bipap. Patient had been given solumedrol via EMS in route. Patient initially found to be mildly hypotensive, which improved after 2 L of IV fluids. ABG showed a potential V/Q mismatch. Given patient's initial tachycardia, CT angio chest was performed which not show any PE. A small consolidation was noted and patient has had a left shift on his CBC his antibiotics were started. The patient has been admitted with Progressive dyspnea/Severe COPD with acute exacerbation - Acute on chronic hypercapnic/hypoxic respiratory failure - Hyperglycemia without history of diabetes - HTN - HLD - Depression - Hx of PE. NOTE: Per ID NOW in the ED noted as negative and Triage assessment lists vaccinated with J&J. The patient per ED assessments and MD documented interactions continues to be A&O x4. The patient lists Andra Muñiz/spouse at [phone] or [phone]. Anticipate as plan of care with medical team develops CM will follow for any identified needs at discharge.
--- NOTE | 2021-04-05 18:20 | NUR ---
PT A/O X 4, CALM AND COOPERATIVE THROUGHOUT SHIFT. PT DENIES PAIN THIS SHIFT. SOB WITH MOVEMENT AND EATING-WILL DESAT TO 80'S. HAS NOT NEEDED BIPAP THIS SHIFT THUS FAR. IV ATBX INFUSING PER MAR. ASSESSMENTS PER CHART. MED REC COMPLETE. ADMISSION COMPLETE IN CHART. PT AWAITNG BED ON INPATIENT UNIT. UPDATED ON POC. WILL CALL HOSPITALIST TO ADD TORSEMIDE AND NASAL SPRAY TO PT MEDS PT TAKES THESE DAILY WELL PER PT. WILL CONT TO MONITOR AND FOLLOW POC.
[2021-04-05 18:48] VITALS: BP 134/82
[2021-04-06] VITALS (9 sets, daily range): BP systolic 89–157; BP diastolic 52–78
--- NOTE | 2021-04-06 07:37 | NUR ---
PATIENT WAS A NEW ADMIT THIS SHIFT. HE CAME FROM THE ER. SABINA STATED HE WAS IN ER FOR TWO DAYS. PATIENT IS ON A BY PAP AND RESTING WELL. PATIENTS VS WERE STABLE, ROUNDS WERE MADE. THE BED IS IN A LOW AND LOCKED POSITION
--- NOTE | 2021-04-06 11:44 | NUR ---
Reassessment of px completed at 0845, but it was documented at 1128.
--- NOTE | 2021-04-06 16:24 | 2DMMODE ---
[facility] [address] [place] [address] 2 D/M-MODE ECHOCARDIOGRAM Name: MALIKA BENZ Room #: 204-P ADM IN M.R.#: [id number] Admission: 04/04/21 Attend Phys: Zach Muñoz MD Discharge: Date of : 59 Report #: [id number] THIS REPORT FOR: cc: Kena Dalton MD, Jennifer S. MD Mancuso, Gerald M. MD [facility] ~ APPROVED REPORT Study performed: 04/06/2021 13:52:15 EXAM: Comprehensive 2D, Doppler, and color-flow Echocardiogram Patient Location: Bedside Room #: 204 Status: routine BSA: 1.67 HR: 79 bpm BP: 89/61 mmHg Rhythm: NSR Other Information Study Quality: Good Indications COPD Dyspnea CAD Hypertension/HDD 2D Dimensions RVDd: 56.42 mm IVSd: 7.39 (7-11mm) LVOT Diam: 23.72 (18-24mm) LVDd: 45.78 mm PWd: 9.06 (7-11mm) Ascending Ao: 27.89 (22-36mm) LVDs: 31.29 (25-40mm) Left Atrium: 35.40 (27-40mm) Aortic Root: 33.90 mm IVC: 23.00 mm Volumes Left Atrial Volume (Systole) Single Plane 4CH: 56.91 mL Single Plane 2CH: 53.93 mL LA ESV Index: 36.00 mL/m2 Aortic Valve AoV Peak Ed.: 1.56 m/s [facility] [address] [place] [address] 2 D/M-MODE ECHOCARDIOGRAM Name: DEMARMALIKA GRAJEDA Room #: 204-P [facility] IN M.R.#: [id number] Admission: 04/04/21 Attend Phys: Kellee Hobson Discharge: Date of : 59 Report #: [id number] AO Peak Gr.: 9.77 mmHg LVOT Max P.81 mmHg LVOT Max V: 0.98 m/s RADHA Vmax: 2.76 cm2 Mitral Valve E/A Ratio: 0.9 MV Decel. Time: 277.20 ms MV E Max Ed.: 0.68 m/s MV A Ed.: 0.72 m/s MV PHT: 80.39 ms IVRT: 129.18 ms Pulmonary Valve PV Peak Ed.: 1.59 m/s PV Peak Gr.: 10.07 mmHg Pulmonary Vein P Vein S: 0.43 m/s P Vein A: 0.34 m/s P Vein D: 0.31 m/s P Vein A Dur.: 124.6 msec P Vein S/D Ratio: 1.39 Tricuspid Valve TR Peak Ed.: 3.53 m/s TR Peak Gr.: 49.81 mmHg PA Pressure: 60.00 mmHg Left Ventricle The left ventricle is normal size. There is normal left ventricular wall thickness. The left ventricular systolic function is normal. The left ventricular ejection fraction is within the normal range. LVEF is 55-60%. Grade I - abnormal relaxation pattern. Right Ventricle Right ventricle is dilated. Right ventricle is hypokinetic. Atria Left atrium is dilated. Right atrium is dilated. Aortic Valve The aortic valve is normal in structure. The Aortic valve is sclerotic. No aortic regurgitation is present. There is no aortic valvular stenosis. Mitral Valve The mitral valve is normal in structure. There is no mitral valve regurgitation noted. No evidence of mitral valve stenosis. [facility] [address] [place] [address] 2 D/M-MODE ECHOCARDIOGRAM Name: MALIKA BENZ Room #: 204-P [facility] IN M.R.#: [id number] Admission: 04/04/21 Attend Phys: Kellee Hobson Discharge: Date of : 59 Report #: [id number] Tricuspid Valve The tricuspid valve is normal in structure. There is mild tricuspid regurgitation. Estimated PAP 60 mmHg. There is moderate pulmonary hypertension. Pulmonic Valve The pulmonary valve is normal in structure. Trace pulmonic regurgitation. Great Vessels The aortic root is normal in size. IVC is dilated and collapses <50% with inspiration. Pericardium There is no pericardial effusion. <Conclusion> The left ventricle is normal size. LVEF is 55-60%. Right ventricle is dilated. Right ventricle is hypokinetic. Left atrium is dilated. Right atrium is dilated. The aortic valve is normal in structure. The Aortic valve is sclerotic. There is no aortic valvular stenosis. There is no mitral valve regurgitation noted. There is mild tricuspid regurgitation. Estimated PAP 60 mmHg. There is moderate pulmonary hypertension. The aortic root is normal in size. There is no pericardial effusion. <ELECTRONICALLY SIGNED> By: Scar Rivero MD, FACC 04/06/21 1624 1624 1624 Scar Rivero MD, FACC /INF
--- NOTE | 2021-04-06 19:02 | NUR ---
assessment as charted . meds as per oct. no co's of pain or nausea. annelise diet and fluids. pt sob with any exertion sats drop into the 80's. taken off bipap this am and plced on 4 l nc. has annelise well. echo completed this afternoon. no co's at the present time. resting comfotaby watching tv.
[2021-04-07 04:52] VITALS: BP 108/78
--- NOTE | 2021-04-07 06:49 | NUR ---
USES THE BIPAP AT NIGHT AND WEARS IT ALL NIGHT.4L NC AT DAYTIME.DENIES PAIN.MONITOR SHOWS SB-SR.POC CONTINUED.
[2021-04-07 07:20] VITALS: BP 112/72
[2021-04-07 11:10] VITALS: BP 107/72
--- NOTE | 2021-04-07 12:47 | NUR ---
Met with patient who admits with exacerbation of COPD. Patient resides at home with who is retired. Patient reports he stays on lower level of home. He has a trilogy, and home oxygen. Trilogy via [employer] [facility]. Patient reports he has not been in hospital for a year 1/2. He called Pulmonary office to question if can treat as outpatient as he is trying to avoid hospital due to COVID. He ambulates with out device. He has a walker if needed. He cont to drive. He goes through pharmacy, food drive through and groceries delivered. Patient usu on 4 liters at rest and turn up oxgen as needed for activity. Patients pulmonogist is Dr. Jose Angel Snow.
[2021-04-07] MEDS ORDERED: ATIVAN1 M1 PO (14:05)
[2021-04-07] MEDS ORDERED: KLOR-CON M2020 MEQ PO (14:06)
[2021-04-07] MEDS ORDERED: NICORETTE2 MG BUCCAL (14:08)
[2021-04-07] MEDS ORDERED: OCEAN104 ML NASAL (14:09)
[2021-04-07] MEDS ORDERED: CALCIUM 600 +1 EA11 PO (14:10)
[2021-04-07] MEDS ORDERED: FISH OIL 1,0001 EAC9 PO (14:12)
[2021-04-07] MEDS ORDERED: ONE-DAILY MULT1 EACH PO (14:12)
[2021-04-07] MEDS ORDERED: VITAMIN C500 M1 PO (14:13)
[2021-04-07] MEDS ORDERED: B COMPLEX1 EACH PO (14:13)
[2021-04-07 15:40] VITALS: BP 107/78
[2021-04-07 19:08] VITALS: BP 107/74
[2021-04-08 05:09] VITALS: BP 108/79
--- NOTE | 2021-04-08 05:19 | NUR ---
SLEPT MOST OF SHIFT. TOLERATED BIPAP WITH SLEEP. WORKING ON GOALS AND PLAN OF CARE FOR NOC. CONTINUE TO ASSES. UP AT BEDSIDE WITH STANDBY ASSIST.
[2021-04-08 07:30] VITALS: BP 108/70
[2021-04-08 11:05] VITALS: BP 91/63
--- NOTE | 2021-04-08 14:51 | NUR ---
Case discussed with the care team. No weekend dc anticipated. PT/OT evals in progress but the pt but was limited due to sob. Increasing iv steriods to see if it will help his respiratory status. Will follow.
[2021-04-08 15:31] VITALS: BP 114/73
--- NOTE | 2021-04-08 18:03 | NUR ---
ASSUMED CARE SHIFT CHANGE. VSS DENIES PAIN. SOB WITH ACTIVITY. RECOVERS WELL. PT WORKED WITH PHYS THERAPY AND OT, ROSHAN FAIR. UOP ADEQUATE. PT CURRENTLY ON 5.5L O2 ROSHAN WELL. SPOSUE AT BEDSIDE UPDATED ON POC. DENIES NEEDS CURRENTLY. CONT POC, WILL PASS REPORT TO HI CORMIER.
[2021-04-08 20:04] VITALS: BP 107/80
--- NOTE | 2021-04-09 03:01 | NUR ---
RESTING QUIETLY ON BIPAP AND TOLERATING WELL. DENIES COMPLAINTS OF PAIN. STILL WITH SHORTNESS OF AIR WITH ACTIVITY. WORKING ON GOALS AND PLAN OF CARE FOR NOC. CONTINUE TO ASSES CLOSELY.
[2021-04-09 03:27] VITALS: BP 107/80
[2021-04-09 11:28] VITALS: BP 115/83
[2021-04-09 15:11] VITALS: BP 96/68
--- NOTE | 2021-04-09 17:06 | NUR ---
ASSESSMENT CHARTED - MEDS PER PANKAJ ISLAS DIET AND FLUIDS. NO CO'S OF PAIN OR NASUEA. HAS COUGHED UP SMALL AMOUNT OF BLOOD TINGED SPUTUM - DR AWARE. ACCUCHECKS CHARTED - NO COVERAGE REQUIRED. DRESSING TO RFA SKIN TEAR CHANGED - XEROFORM AND MEPILEX PLACED. NO CO'S AT THE PRESENT TIME
[2021-04-09 19:27] VITALS: BP 93/67
[2021-04-10 04:48] VITALS: BP 109/78
[2021-04-10 09:25] VITALS: BP 140/87
[2021-04-10 12:28] VITALS: BP 91/71
[2021-04-10 16:00] VITALS: BP 111/81
--- NOTE | 2021-04-10 18:23 | NUR ---
ASSESSMENT CHARTED - MEDS PER PANKAJ - ROSHAN DIET AND FLUIDS. NO CO'S OF PAIN OR NAUSEA.. PT SOB WITH MOINEXERTION - SAT 93-94 % ON ROOM AIR AT REST. PTINOT THE BATHROOM TODAY AND HAD BM. VERY SOB WHEN RETRUNED TO THE BED. ACCUCHECKS CHARTED - COVERED PER SSI PRN. PT TO HAVE BIPAP PLACED AT NOC. NO CO'S AT THE PRESENT TIME.
[2021-04-10 20:11] VITALS: BP 100/73
[2021-04-11 04:30] VITALS: BP 110/80
[2021-04-11 07:25] VITALS: BP 4124/88
[2021-04-11 11:20] VITALS: BP 97/74
--- NOTE | 2021-04-11 13:02 | NUR ---
met with patient regarding dc planning. Discussed HH with patient. he reports he has received HH in past. he is familiar with HH services. he does not feel he needs HH at dc. He has all his needs in reach. he has his home oxygen and trilogy. He avail to assist. He plans home with no HH. Updated phys.
[2021-04-11] MEDS ORDERED: ACETYLCYST200 MG/1 M INH (13:22)
[2021-04-11] MEDS ORDERED: PREDNISONE 20 M20 M1 PO (13:22)
[2021-04-11] MEDS ORDERED: PULMICORT0.5 MG/21 INH (13:22)
[2021-04-11] MEDS ORDERED: DOXYCYCLINE HYC50 MG PO (13:22)
[2021-04-11 14:37] VITALS: BP 97/74
--- NOTE | 2021-04-11 15:56 | NUR ---
ASSESSMENT CHARTED - MEDS PER PANKAJ ISLAS DIET AND FLUIDS. NO CO'S OF PAIN OR NAUSEA. UP IN ROOM TOLERATED. EXERCISE OXIMETRY COMPLETED ORDEREDD. ACCUCHECKS CHARTED - PT HOME THIS AFTERNOON. INSTRUCTION RE HOME MEDS/ CARE AND FOLLOW UP GIVEN TO PATIENT. STATED UNDERSTANDING OF INSTRUCTION GIVEN. WHEN PATIENT IV WAS BEING REMOVED SKIN TEAR OCCURRED - AREA HAD XEROFORM GAUZE PLACED AND MEPILEX PLACED. PT GIVEN SUPPLIES TO DRESS BOTH AT HOME. LEFT UNIT VIA WHEELCHAIR WITH O2. HOME VIA PVT VEHICLE. NO CO'S AT TIME OF D/C.
== END 2021-04-11 15:50 | disposition home or self-care (01) | DRG 871 ==
LOC: ER 16:48 → 2N 21:43 → EROBS 21:43 → 2N 04-06 01:15
PROVIDERS: Nurse Practitioner Family; Student in an Organized Health Care Education/Training Program; ADMIT Hospitalist; ATTEND Hospitalist
PROC: 5A09357 Assistance with Respiratory Ventilation, Less than 24 Consecutive Hours, Continuous Positive Airway Pressure (ICD-10-PCS; principal; 2021-04-04)
PROC: 5A09357 Assistance with Respiratory Ventilation, Less than 24 Consecutive Hours, Continuous Positive Airway Pressure (ICD-10-PCS; 2021-04-05)
PROC: 5A09357 Assistance with Respiratory Ventilation, Less than 24 Consecutive Hours, Continuous Positive Airway Pressure (ICD-10-PCS; 2021-04-06)
PROC: 5A09357 Assistance with Respiratory Ventilation, Less than 24 Consecutive Hours, Continuous Positive Airway Pressure (ICD-10-PCS; 2021-04-07)
PROC: 5A09357 Assistance with Respiratory Ventilation, Less than 24 Consecutive Hours, Continuous Positive Airway Pressure (ICD-10-PCS; 2021-04-08)
PROC: 5A09357 Assistance with Respiratory Ventilation, Less than 24 Consecutive Hours, Continuous Positive Airway Pressure (ICD-10-PCS; 2021-04-09)
PROC: 5A09357 Assistance with Respiratory Ventilation, Less than 24 Consecutive Hours, Continuous Positive Airway Pressure (ICD-10-PCS; 2021-04-10)
PROC: 5A09357 Assistance with Respiratory Ventilation, Less than 24 Consecutive Hours, Continuous Positive Airway Pressure (ICD-10-PCS; 2021-04-11)
DX: A41.9 Sepsis, unspecified organism (principal); J18.9 Pneumonia, unspecified organism; J96.21 Acute and chronic respiratory failure with hypoxia; J96.22 Acute and chronic respiratory failure with hypercapnia; Z20.822 Contact with and (suspected) exposure to COVID-19; R73.9 Hyperglycemia, unspecified; I27.20 Pulmonary hypertension, unspecified; F32.9 Major depressive disorder, single episode, unspecified; R65.20 Severe sepsis without septic shock; E78.5 Hyperlipidemia, unspecified; I25.10 Atherosclerotic heart disease of native coronary artery without angina pectoris; J43.9 Emphysema, unspecified; I10 Essential (primary) hypertension; Z86.711 Personal history of pulmonary embolism; Z90.49 Acquired absence of other specified parts of digestive tract; Z98.52 Vasectomy status; Z82.49 Family history of ischemic heart disease and other diseases of the circulatory system; Z87.891 Personal history of nicotine dependence; Z79.899 Other long term (current) drug therapy
CPT/HCPCS: 10081